=== PATIENT | male | born 1970 | race Caucasian/White ===

== ENCOUNTER 2022-08-26 19:04 | Inpatient (IN) ==
[2022-08-26] MEDS ORDERED: OPTIRAY 320 500ml IV ONE (19:13)
--- NOTE | 2022-08-26 19:18 | Emergency Department Note ---
Impression & Plan Left-sided weakness, Nausea ED Provider Note Provider: Juanjose Jameson MD DATE OF SERVICE: 08/26/2022 CHIEF COMPLAINT: Weakness, nausea HISTORY OF PRESENT ILLNESS: Patient is a 51-year-old gentleman presenting via ambulance today with a sudden onset around 430 today of some diffuse left-sided pain of his arm and leg. States he developed a headache and was dizzy and just generally does not feel well. No trauma reported. Denies any issues with his right arm and leg. No history of similar. Little bit of nausea reported. Denies any speech issues or trouble getting his words out. Again endorses some pain in his neck down to his left arm and leg. States the pain extends to his left chest wall and abdomen as well. States he is unable to move his left fingers or toes. States he has good movement of his right arm and leg. Denies any twisting or lifting action again or injury to his neck. Pain starts in his neck. Patient has vomited. PAST MEDICAL HISTORY: As noted above MEDICATIONS: None reported SOCIAL HISTORY: [employer]onite, non-smoker PHYSICAL EXAM: GENERAL: alert and oriented in no acute distress on stretcher Head: normocephalic and atraumatic EYES: No injection, discharge or icterus. NECK: Trachea midline. Supple no significant midline tenderness ENT: Mucous membranes pink and moist. Pharynx without erythema or exudate. LUNGS: Airway patent. No retractions. Breath sounds clear HEART: Regular rate and rhythm. Some slight left chest wall tenderness. ABDOMEN: Soft a with some slight left abdominal tenderness SKIN: Acyanotic, warm, dry, without rashes EXTREMITIES: No significant swelling or edema of the lower extremities. NEUROLOGICAL: Patient without significant slurred speech or aphasia. Minimal in the left facial droop. Diminished sensation left arm face and leg. Movement of flaccid left arm and leg. Intact strength and movement of the right arm and leg. Tongue midline. EK bpm normal sinus rhythm. No PVC or PAC. No acute ST segment elevation or depression with QTc of 414 CONTINUOUS CARDIAC MONITORING: was ordered and showed a heart rate of 50s-60s bpm in sinus bradycardia normal sinus rhythm Patient's laboratory studies and imaging reviewed. Differential includes Infection, dehydration, metabolic abnormality, hypo/hyperglycemia, electrolyte disturbance, anemia, hypoxia, cardiac sources, intracerebral event, toxicologic, neurologic, as well as other pathologies. IMPRESSION/MEDICAL DECISION MAKING: Patient made a stroke alert given the severity of symptoms with left-sided weakness and numbness. Onset of symptoms around 4:30 PM. No trauma reported. Reports pain which is atypical for CVA through most of his left arm, chest wall, abdomen, and leg. Has been nauseous. Denies acute visual change but states some dizziness. No significant right-sided deficits. Immediately to CT and then back to the room. Telestroke consult with [facility]. CT of the head without acute bleed. CTA of the neck without significant acute abnormality or dissection noted per radiology. CTA of the head without reported acute abnormality. Given the pain was a bit hesitant to immediately proceed with TNK and wished to discuss further with telestroke. Some delay in obtaining telestroke consultation due to transfer center called back issues. Eventual telestroke consultation. Discussed with patient and family at bedside risk and benefits. Given his significant hemiparesis within the 4 and half hour window, proceeded with TNK again after discussing risk and benefits with patient and family. Blood work here without other severe abnormalities. Again no central chest pain or abdominal pain and doubt this represents aortic dissection. Patient continues to complain of pain mainly in the left arm now improved in the left leg but some pain in his left great toe. Reports some nausea and received some Zofran for this. Given some IV fluid. After administration of thrombolytics will be monitored closely in the ICU and hospitalist was consulted. Discussed the case with Dr. Alves. DIAGNOSIS: Left-sided weakness and numbness, nausea, left facial numbness DISPOSITION: Hospitalist will evaluate Patient was agreeable with this plan. Critical Care I have personally spent 55 minutes of critical care time in the direct management of this patient. This includes bedside care, interpretation of diagnostic studies, and testing, discussion with consultants, patient, and [facility] members, and other required patient management activities. These 55 minutes is in excess of all separately billable procedures. Past Med/Surg History Social History Smoking Status: Current every day smoker Tobacco Type: Cigarettes and Cigars Cigarettes Per Day: 1 cigar per day; Hx Alcohol Use: No Hx Substance Use: No Preferred Language: Greenlandic Communication Ability: Effective Retail Coordinator Required: No Beliefs That Will Affect Care: None Current Living Situation: Spouse and Family Current Living Situation Comment: Patient lives with spouse and children Other Information That Helps Us Care for You: No Feels Safe at Home: Yes Safety Concerns: Feels Safe At This Time Assistive Devices: Glasses Assistive Devices Comment: reading glasses Allergies Allergies Allergy/AdvReac Type Severity Reaction Status Date / Time morphine Allergy Mild Hives Verified 08/26/22 20:40 Home Meds Home Medications Medication Instructions Recorded Confirmed acetaminophen 650 mg 650 mg PO Q8H PRN Pain 08/26/22 08/26/22 tablet,extended release cyclobenzaprine 10 mg tablet 10 mg PO BID PRN muscle spasms 08/26/22 08/26/22 Results & Data (ED) Vital Signs Vital Signs - 24 hr 08/26/22 19:21 08/26/22 19:30 08/26/22 19:35 Temperature 36.7 C Temperature Source Oral Pulse Rate 66 62 62 Pulse Rate [Apical] Pulse Rhythm [Apical] Pulse Strength [Apical] Respiratory Rate 16 16 Respiratory Effort / Characteristics Non-Labored Spontaneous Respiratory Depth Normal Respiratory Pattern Regular Blood Pressure 134/76 122/69 Blood Pressure [Right Arm] Blood Pressure Mean 95 86 Blood Pressure Mean [Right Arm] Blood Pressure Position Semi-fowlers Blood Pressure Position [Right Arm] Pulse Oximetry 96 98 Oxygen Delivery Method Room Air Room Air Sepsis Recent Fever Within 48 Hours No Sepsis New/Unexplained Change in Mental Status N/A Sepsis Action Taken by Nursing No Action Required 08/26/22 19:45 08/26/22 20:25 08/26/22 20:40 Temperature 36.7 C 36.6 C Temperature Source Oral Oral Pulse Rate 65 Pulse Rate [Apical] 55 L 58 L Pulse Rhythm [Apical] Regular Regular Pulse Strength [Apical] Normal Normal Respiratory Rate 18 16 20 Respiratory Effort / Characteristics Non-Labored Spontaneous Non-Labored Spontaneous Respiratory Depth Normal Normal Respiratory Pattern Regular Regular Blood Pressure 125/70 Blood Pressure [Right Arm] 113/69 111/71 Blood Pressure Mean 88 Blood Pressure Mean [Right Arm] 83 84 Blood Pressure Position Blood Pressure Position [Right Arm] Semi-fowlers Semi-fowlers Pulse Oximetry 94 97 97 Oxygen Delivery Method Room Air Room Air Room Air Sepsis Recent Fever Within 48 Hours Sepsis New/Unexplained Change in Mental Status Sepsis Action Taken by Nursing 08/26/22 20:55 Temperature 36.6 C Temperature Source Oral Pulse Rate Pulse Rate [Apical] 60 Pulse Rhythm [Apical] Regular Pulse Strength [Apical] Normal Respiratory Rate 18 Respiratory Effort / Characteristics Non-Labored Spontaneous Respiratory Depth Normal Respiratory Pattern Regular Blood Pressure Blood Pressure [Right Arm] 114/68 Blood Pressure Mean Blood Pressure Mean [Right Arm] 83 Blood Pressure Position Blood Pressure Position [Right Arm] Semi-fowlers Pulse Oximetry 97 Oxygen Delivery Method Room Air Sepsis Recent Fever Within 48 Hours Sepsis New/Unexplained Change in Mental Status Sepsis Action Taken by Nursing Laboratory Data 08/26/22 19:22 08/26/22 19:22 Lab Results 08/26/22 08/26/22 08/26/22 Range/Units 19:20 19:22 19:22 WBC 5.35 (4.8-10.8) K/ul RBC 4.53 L (4.70-6.10) M/uL Hgb 14.1 (14.0-18.0) g/dl Hct 39.7 L (42.0-52.0) % MCV 87.6 (80.0-100.0) fL MCH 31.1 (25.0-34.0) pg MCHC 35.5 (32.0-36.0) g/dL RDW Std Deviation 41.8 (36.4-46.3) fL RDW Coeff of Clement[place] 13.0 (11.5-14.5) % Plt Count 285 (130-400) K/uL MPV 9.9 (9.4-12.4) fL Immature Gran % (Auto) 0.2 % Neut % (Auto) 43.5 % Lymph % (Auto) 40.2 % Simpson % (Auto) 10.3 % Eos % (Auto) 3.6 % Baso % (Auto) 2.2 % Neut # (Auto) 2.33 (1.40-6.50) K/uL Lymph # (Auto) 2.15 (1.2-3.4) K/uL Simpson # (Auto) 0.55 (0.11-0.59) K/uL Eos # (Auto) 0.19 (0-0.50) K/uL Baso # (Auto) 0.12 (0-0.2) K/uL Immature Gran # (Auto) 0.01 (0.01-0.20) K/uL PT (9.0-12.0) Seconds INR (0.9-1.1) APTT (21.0-31.0) Seconds PTT Ratio Sodium (136-145) mmol/L Potassium (3.5-5.1) mmol/L Chloride (98-107) mmol/L Carbon Dioxide (21-32) mmol/L Anion Gap (3-11) BUN (6-23) mg/dl Creatinine (0.6-1.4) mg/dl Est Cr Clr Drug Dosing ml/min Est GFR ( Amer) ml/min Est GFR (Non-Af Amer) ml/min BUN/Creatinine Ratio (10-20) Glucose (70-99(Fasting)) mg/dl POC Glucose 87 (70-99) mg/dl Calcium (8.5-10.1) mg/dl Magnesium (1.7-2.4) mg/dl Total Bilirubin (0.2-1.0) mg/dl AST (13-39) U/L ALT (7-52) U/L Alkaline Phosphatase (34-104) U/L Total Creatine Kinase (30-223) U/L Troponin I High Sens (0-20) pg/ml Total Protein (6.0-8.3) gm/dl Albumin (3.4-5.0) gm/dl Globulin (2.5-4.0) gm/dl Albumin/Globulin Ratio (0.9-2) Urine Color Urine Appearance (Clear) Urine pH (4.5-7.5) Ur Specific [place] (1.000-1.030) Urine Protein (Negative) Urine Glucose (UA) (Negative) Urine Ketones (Negative) Urine Blood (Negative) Urine Nitrite (Negative) Urine Bilirubin (Negative) Urine Urobilinogen (Negative) Ur Leukocyte Esterase (Negative) Lyme Disease IgG Ab (Negative) Lyme Disease IgM Ab (Negative) SARS-CoV-2, RNA, NAAT (NEGATIVE) Blood Type A Positive Antibody Screen NEGATIVE 08/26/22 08/26/22 08/26/22 Range/Units 19:22 19:22 19:23 WBC (4.8-10.8) K/ul RBC (4.70-6.10) M/uL Hgb (14.0-18.0) g/dl Hct (42.0-52.0) % MCV (80.0-100.0) fL MCH (25.0-34.0) pg MCHC (32.0-36.0) g/dL RDW Std Deviation (36.4-46.3) fL RDW Coeff of Clemente (11.5-14.5) % Plt Count (130-400) K/uL MPV (9.4-12.4) fL Immature Gran % (Auto) % Neut % (Auto) % Lymph % (Auto) % Simpson % (Auto) % Eos % (Auto) % Baso % (Auto) % Neut # (Auto) (1.40-6.50) K/uL Lymph # (Auto) (1.2-3.4) K/uL Simpson # (Auto) (0.11-0.59) K/uL Eos # (Auto) (0-0.50) K/uL Baso # (Auto) (0-0.2) K/uL Immature Gran # (Auto) (0.01-0.20) K/uL PT 12.2 H (9.0-12.0) Seconds INR 1.2 H (0.9-1.1) APTT 27.0 (21.0-31.0) Seconds PTT Ratio 1.0 Sodium 135 L (136-145) mmol/L Potassium 3.8 (3.5-5.1) mmol/L Chloride 102 (98-107) mmol/L Carbon Dioxide 28 (21-32) mmol/L Anion Gap 5 (3-11) BUN 9 (6-23) mg/dl Creatinine 0.95 (0.6-1.4) mg/dl Est Cr Clr Drug Dosing 103.2 ml/min Est GFR ( Amer) 108.5 ml/min Est GFR (Non-Af Amer) 93.6 ml/min BUN/Creatinine Ratio 9.5 L (10-20) Glucose 79 (70-99(Fasting)) mg/dl POC Glucose (70-99) mg/dl Calcium 9.0 (8.5-10.1) mg/dl Magnesium 1.9 (1.7-2.4) mg/dl Total Bilirubin 0.6 (0.2-1.0) mg/dl AST 16 (13-39) U/L ALT 19 (7-52) U/L Alkaline Phosphatase 64 (34-104) U/L Total Creatine Kinase 96 (30-223) U/L Troponin I High Sens 3.0 (0-20) pg/ml Total Protein 6.4 (6.0-8.3) gm/dl Albumin 4.2 (3.4-5.0) gm/dl Globulin 2.2 L (2.5-4.0) gm/dl Albumin/Globulin Ratio 1.9 (0.9-2) Urine Color Urine Appearance (Clear) Urine pH (4.5-7.5) Ur Specific [place] (1.000-1.030) Urine Protein (Negative) Urine Glucose (UA) (Negative) Urine Ketones (Negative) Urine Blood (Negative) Urine Nitrite (Negative) Urine Bilirubin (Negative) Urine Urobilinogen (Negative) Ur Leukocyte Esterase (Negative) Lyme Disease IgG Ab Negative (Negative) Lyme Disease IgM Ab Negative (Negative) SARS-CoV-2, RNA, NAAT (NEGATIVE) Blood Type Antibody Screen 08/26/22 08/26/22 Range/Units 19:28 19:35 WBC (4.8-10.8) K/ul RBC (4.70-6.10) M/uL Hgb (14.0-18.0) g/dl Hct (42.0-52.0) % MCV (80.0-100.0) fL MCH (25.0-34.0) pg MCHC (32.0-36.0) g/dL RDW Std Deviation (36.4-46.3) fL RDW Coeff of Clement[place] (11.5-14.5) % Plt Count (130-400) K/uL MPV (9.4-12.4) fL Immature Gran % (Auto) % Neut % (Auto) % Lymph % (Auto) % Simpson % (Auto) % Eos % (Auto) % Baso % (Auto) % Neut # (Auto) (1.40-6.50) K/uL Lymph # (Auto) (1.2-3.4) K/uL Simpson # (Auto) (0.11-0.59) K/uL Eos # (Auto) (0-0.50) K/uL Baso # (Auto) (0-0.2) K/uL Immature Gran # (Auto) (0.01-0.20) K/uL PT (9.0-12.0) Seconds INR (0.9-1.1) APTT (21.0-31.0) Seconds PTT Ratio Sodium (136-145) mmol/L Potassium (3.5-5.1) mmol/L Chloride (98-107) mmol/L Carbon Dioxide (21-32) mmol/L Anion Gap (3-11) BUN (6-23) mg/dl Creatinine (0.6-1.4) mg/dl Est Cr Clr Drug Dosing ml/min Est GFR ( Amer) ml/min Est GFR (Non-Af Amer) ml/min BUN/Creatinine Ratio (10-20) Glucose (70-99(Fasting)) mg/dl POC Glucose (70-99) mg/dl Calcium (8.5-10.1) mg/dl Magnesium (1.7-2.4) mg/dl Total Bilirubin (0.2-1.0) mg/dl AST (13-39) U/L ALT (7-52) U/L Alkaline Phosphatase (34-104) U/L Total Creatine Kinase (30-223) U/L Troponin I High Sens (0-20) pg/ml Total Protein (6.0-8.3) gm/dl Albumin (3.4-5.0) gm/dl Globulin (2.5-4.0) gm/dl Albumin/Globulin Ratio (0.9-2) Urine Color Yellow Urine Appearance Clear (Clear) Urine pH 7.5 (4.5-7.5) Ur Specific [place] 1.008 (1.000-1.030) Urine Protein Negative (Negative) Urine Glucose (UA) Negative (Negative) Urine Ketones Negative (Negative) Urine Blood Negative (Negative) Urine Nitrite Negative (Negative) Urine Bilirubin Negative (Negative) Urine Urobilinogen Negative (Negative) Ur Leukocyte Esterase Negative (Negative) Lyme Disease IgG Ab (Negative) Lyme Disease IgM Ab (Negative) SARS-CoV-2, RNA, NAAT NEGATIVE (NEGATIVE) Blood Type Antibody Screen Administered Medications Dextrose/Lactated Ringer's (D5w And Lactated Ringers) 1,000 mls @ 100 mls/hr IV .Q10H ONE Stop: 08/27/22 07:00 Last Admin: 08/26/22 22:03 Dose: 100 mls/hr Documented By: BPY Discontinued Medications Tenecteplase 22 mg/ Syringe 4.4 mls @ 52.8 mls/min IV NOW ONE; Protocol Stop: 08/26/22 20:15 Last Admin: 08/26/22 20:10 Dose: 52.8 mls/min Documented By: TIMOTHY Co-signed By: CRISTY Sodium Chloride (Nss 1000ml) 1,000 mls @ 999 mls/hr IV .Q1H1M ONE Stop: 08/26/22 21:08 Last Infusion: 08/26/22 21:13 Dose: 0 mls/hr Documented By: Admin: 08/26/22 20:12 Dose: 999 mls/hr Documented By: TIMOTHY Magnesium Sulfate/Dextrose (Magnesium Sulfate / D5w) 1 gm in 100 mls @ 50 mls/hr IV ONE ONE Stop: 08/26/22 22:20 Last Infusion: 08/26/22 22:50 Dose: 0 mls/hr Documented By: Admin: 08/26/22 20:37 Dose: 50 mls/hr Documented By: TIMOTHY Acetaminophen (Ofirmev) 1,000 mg in 100 mls @ 400 mls/hr IV NOW STA Stop: 08/26/22 21:14 Last Infusion: 08/26/22 21:24 Dose: 0 mls/hr Documented By: Admin: 08/26/22 21:09 Dose: 400 mls/hr Documented By: TIMOTHY Ioversol (Optiray 320 500ml) 118 ml IV ONCE ONE Stop: 08/26/22 19:14 Last Admin: 08/26/22 19:13 Dose: 118 ml Documented By: NKECHI Miscellaneous (Stat Iv) 1 each N/A NOW STA Stop: 08/26/22 20:05 Last Admin: 08/26/22 20:11 Dose: 1 each Documented By: TIMOTHY Ondansetron HCl (Ondansetron Inj 2 Mg/Ml 2 Ml Vial) 4 mg IV NOW STA Stop: 08/26/22 19:28 Last Admin: 08/26/22 19:31 Dose: 4 mg Documented By: TIMOTHY Ondansetron HCl (Ondansetron Inj 2 Mg/Ml 2 Ml Vial) 4 mg IV NOW STA Stop: 08/26/22 20:09 Last Admin: 08/26/22 20:13 Dose: 4 mg Documented By: TIMOTHY Sodium Chloride (Sodium Chloride 0.9% 10ml Flush) 20 ml IV NOW STA Stop: 08/26/22 20:05 Last Admin: 08/26/22 20:11 Dose: 20 ml Documented By: JT Imaging Data Radiologist's Impression: Head CT 08/26/22 19:03 CT OF THE HEAD WITHOUT CONTRAST CLINICAL HISTORY: neuro deficit, acute stroke suspected, left weak/numb COMPARISON STUDY: Head CT January 22, 2007. TECHNIQUE: Helical axial images of the head were obtained without IV contrast. Automated exposure control was utilized for the study. A dose lowering technique was utilized adhering to the principles of ALARA. FINDINGS: This study is mildly compromised by motion artifact. No acute intracranial hemorrhage, midline shift or mass effect is present. The ventricular system is unremarkable. The basal cisterns are patent. No extra- axial collections are present. There are no findings to suggest acute dural sinus thrombosis or acute territorial infarct. No significant calvarial abnormalities are present. IMPRESSION: No acute intracranial findings. ACT 112: Negative or not required by law. Electronically signed by: Juan Joseph M.D. 08/26/2022 7:29 PM Head CTA 08/26/22 19:03 CTA ANGIOGRAPHY OF THE HEAD CLINICAL HISTORY: neuro deficit, acute stroke suspected COMPARISON STUDY: Head CT January 22, 2007. TECHNIQUE: Helical axial images of the head were obtained following uneventful intravenous administration of 118 cc of Optiray. Sagittal and coronal reconstructions were viewed as well as maximal intensity projections on an independent 3-D workstation. Automated exposure control was utilized for the study. A dose lowering technique was utilized adhering to the principles of ALARA. FINDINGS: Brain volume is normal. Ventricular system is normal. Basal cisterns are patent. There are no extra-axial collections. No intracranial hemorrhage was identified on the head CT which will be reported separately. The bilateral M1, M2, A1 and A2 segments are patent. There is no central vessel occlusion. There is no intracranial aneurysm. The posterior circulation is also intact. Major dural sinuses are patent. IMPRESSION: No central vessel occlusion. No intracranial aneurysm. ACT 112: Negative or not required by law. Electronically signed by: Juan Joseph M.D. 08/26/2022 7:37 PM Neck CTA 08/26/22 19:03 CT ANGIOGRAPHY OF THE NECK WITH CONTRAST CLINICAL HISTORY: neuro deficit, acute stroke suspected COMPARISON STUDY: No previous studies for comparison. Technique: CT angiography of the carotid and vertebral arteries was obtained using Optiray and 3D reconstruction on an independent workstation. NASCET cri teria was utilized. Automated exposure control was utilized for the study. A dose lowering technique was utilized adhering to the principles of ALARA. CT DOSE: 1711.57 mGy.cm Findings: Visualized portions of the lung apices are unremarkable. There is no cervical lymphadenopathy. There is no acute cervical spine fracture. The bilat eral common carotid, cervical internal carotid and vertebral arteries are patent. There is no dissection, stenosis or aneurysm within the major vasculature of the neck. CTA of the head will be reported separately. IMPRESSION: Unremarkable CTA of the neck. ACT 112: Negative or not required by law. Electronically signed by: Juan Joseph M.D. 08/26/2022 7:33 PM Discharge Plan Visit Data Chief Complaint: Stroke Alert Stated Complaint: STROKE SX ED Provider: Juanjose Jameson Discharge Problem: Left-sided weakness, Nausea Patient Disposition: Admitted As Inpatient Discharge Instructions Interventions: ED Discharge Assessment Last Done: 08/26/22 21:22
[2022-08-26] MEDS ORDERED: ONDANSETRON INJ 2 MG/ML 2 ML VIAL IV STA ×2 (19:27→20:08)
--- NOTE | 2022-08-26 19:31 | CT Scan Report ---
CT OF THE HEAD WITHOUT CONTRAST CLINICAL HISTORY: neuro deficit, acute stroke suspected, left weak/numb COMPARISON STUDY: Head CT January 22, 2007. TECHNIQUE: Helical axial images of the head were obtained without IV contrast. Automated exposure con trol was utilized for the study. A dose lowering technique was utilized adhering to the principles o f ALARA. FINDINGS: This study is mildly compromised by motion artifact. No acute intracranial hemorrhage, midl ine shift or mass effect is present. The ventricular system is unremarkable. The basal cisterns are p atent. No extra-axial collections are present. There are no findings to suggest acute dural sinus thr ombosis or acute territorial infarct. No significant calvarial abnormalities are present. IMPRESSION: No acute intracranial findings. ACT 112: Negative or not required by law. Electronically signed by: Juan Joseph M.D. 08/26/2022 7:29 PM
--- NOTE | 2022-08-26 19:37 | CT Scan Report ---
CT ANGIOGRAPHY OF THE NECK WITH CONTRAST CLINICAL HISTORY: neuro deficit, acute stroke suspected COMPARISON STUDY: No previous studies for comparison. Technique: CT angiography of the carotid and vertebral arteries was obtained using Optiray and 3D rec onstruction on an independent workstation. NASCET criteria was utilized. Automated exposure control was utilized for the study. A dose lowering technique was utilized adhering to the principles of ALA RA. CT DOSE: 1711.57 mGy.cm Findings: Visualized portions of the lung apices are unremarkable. There is no cervical lymphadenopat hy. There is no acute cervical spine fracture. The bilateral common carotid, cervical internal caroti d and vertebral arteries are patent. There is no dissection, stenosis or aneurysm within the major va sculature of the neck. CTA of the head will be reported separately. IMPRESSION: Unremarkable CTA of the neck. ACT 112: Negative or not required by law. Electronically signed by: Juan Joseph M.D. 08/26/2022 7:33 PM
--- NOTE | 2022-08-26 19:38 | CT Scan Report ---
CTA ANGIOGRAPHY OF THE HEAD CLINICAL HISTORY: neuro deficit, acute stroke suspected COMPARISON STUDY: Head CT January 22, 2007. TECHNIQUE: Helical axial images of the head were obtained following uneventful intravenous administr ation of 118 cc of Optiray. Sagittal and coronal reconstructions were viewed as well as maximal inten sity projections on an independent 3-D workstation. Automated exposure control was utilized for the study. A dose lowering technique was utilized adhering to the principles of ALARA. FINDINGS: Brain volume is normal. Ventricular system is normal. Basal cisterns are patent. There are no extra-axial collections. No intracranial hemorrhage was identified on the head CT which will be re ported separately. The bilateral M1, M2, A1 and A2 segments are patent. There is no central vessel oc clusion. There is no intracranial aneurysm. The posterior circulation is also intact. Major dural sin uses are patent. IMPRESSION: No central vessel occlusion. No intracranial aneurysm. ACT 112: Negative or not required by law. Electronically signed by: Juan Joseph M.D. 08/26/2022 7:37 PM
[2022-08-26 19:45] LABS: Basophils # (auto) 0.12 K/uL (0-0.2); Basophils % (auto) 2.2 %; Eosinophils # (auto) 0.19 K/uL (0-0.50); Eosinophils % (auto) 3.6 %; Hematocrit (blood only) 39.7 % (42.0-52.0); Hemoglobin 14.1 g/dl (14.0-18.0); Immature Granulocytes # (auto) 0.01 K/uL (0.01-0.20); Immature Granulocytes % (auto) 0.2 %; Lymphocytes # (auto) 2.15 K/uL (1.2-3.4); Lymphocytes % (auto) 40.2 %; Mean Corpuscular Hemoglobin 31.1 pg (25.0-34.0); Mean Corpuscular Hgb Conc 35.5 g/dL (32.0-36.0); Mean Corpuscular Volume 87.6 fL (80.0-100.0); Mean Platelet Volume 9.9 fL (9.4-12.4); Monocytes # (auto) 0.55 K/uL (0.11-0.59); Monocytes % (auto) 10.3 %; Neutrophils # (auto) 2.33 K/uL (1.40-6.50); Neutrophils % (auto) 43.5 %; Platelet Count 285 K/uL (130-400); RDW Standard Deviation 41.8 fL (36.4-46.3); Red Blood Count 4.53 M/uL (4.70-6.10); White Blood Count 5.35 K/ul (4.8-10.8)
[2022-08-26 19:49] LABS: Appearance Urine Clear (Clear); Bilirubin Urine Negative (Negative); Blood Urine Negative (Negative); Color Urine Yellow; Glucose Urine UA Negative (Negative); Ketones Urine Negative (Negative); Leukocyte Esterase Urine Negative (Negative); Nitrite Urine Negative (Negative); Protein Urine Negative (Negative); Specific Gravity Urine 1.008 (1.000-1.030); Urobilinogen Urine Negative (Negative); pH Urine 7.5 (4.5-7.5)
[2022-08-26 20:02] LABS: Albumin Globulin Ratio 1.9 (0.9-2); Albumin Level 4.2 gm/dl (3.4-5.0); BUN Creatinine Ratio 9.5 (10-20); Bilirubin,Total 0.6 mg/dl (0.2-1.0); Creatinine Clr Calc Pharmacy 103.2 ml/min; Est GFR (African American) 108.5 ml/min; Est GFR (Non-African American) 93.6 ml/min; Globulin 2.2 gm/dl (2.5-4.0); Magnesium 1.9 mg/dl (1.7-2.4); Potassium 3.8 mmol/L (3.5-5.1); Total Protein 6.4 gm/dl (6.0-8.3)
[2022-08-26] MEDS ORDERED: STAT IV STA (20:04)
[2022-08-26] MEDS ORDERED: SODIUM CHLORIDE 0.9% 10ML FLUSH IV STA (20:04)
[2022-08-26] MEDS ORDERED: SODIUM CHLORIDE 0.9% 1000ML 1,000 ML IV ONE (20:08)
[2022-08-26 20:14] LABS: INR 1.2 (0.9-1.1); Prothrombin Time 12.2 Seconds (9.0-12.0)
[2022-08-26] MEDS ORDERED: TENECTEPLASE 22 MG in SYRINGE 0 ML IV ONE (20:14)
[2022-08-26] MEDS ORDERED: No Aspirin within 24hrs of THROMBOLYTIC-Stroke PO SCH (20:15)
[2022-08-26] MEDS ORDERED: MAGNESIUM SULFATE / D5W 1 GM/100 ML BAG IV ONE (20:21)
[2022-08-26] MEDS ORDERED: ACETAMINOPHEN 1,000 MG/100 ML VIAL IV STA (21:00)
--- NOTE | 2022-08-26 21:00 | History & Physical Report ---
Date of Service August 26, 2022 Assessment & Plan (1) Left-sided weakness: Plan: Acute ischemic stroke (right MCA distribution) in a young patient Somewhat atypical given pain complaints. Weakness unchanged post tenecteplase administration at the ER Past tobacco abuse ICU monitoring post thrombolytic administration Neurochecks MRI brain Re: Left-sided weakness MRI cervical spine as per additional [facility] [place] Hypercoag work-up Neurology consult Re: Left-sided weakness DVT prophylaxis. Lovenox subcu 24 hours post tPA if no bleed Full code Patient requesting updates from providers. Mr. Lizzie Anand, contact #[phone]. Text document was generated using [employer]uz[employer] voice recognition software. It may contain grammatical or spelling errors. Kindly contact undersigned for clarification of any documentation item in question. History of Present Illness Chief Complaint: Left-sided weakness/pain Primary Care Provider: Dr. Garcia History obtained from patient, family, and records. Medical history significant for past tobacco abuse. Around 4:30 PM today, patient noted achy left upper arm and left leg pain with left-sided headache and dizziness symptoms. No neck pain, no chest pain, no SOB. No prior episodes. Minutes later, patient noted weakness and numbness of the left arm and left leg. No slurred speech noted by . Stroke alert called upon arrival at the ER. IV tenecteplase administered as per [facility] neurolog[place] recommendation. Left-sided pain somewhat better but weakness the same as per patient. Patient currently complaining of left-sided rib pain without shortness of breath. No recent trauma. Medical History as above Surgical History : None Family History : Prostate cancer Personal/Social history : Past tobacco abuse, no EtOH intake, [employer] company Allergies Allergy/AdvReac Type Severity Reaction Status Date / Time morphine Allergy Mild Hives Verified 08/26/22 20:40 Home Medications Medication Instructions Recorded Confirmed Type acetaminophen 650 mg 650 mg PO Q8H PRN Pain 08/26/22 08/26/22 History tablet,extended release cyclobenzaprine 10 mg tablet 10 mg PO BID PRN muscle spasms 08/26/22 08/26/22 History Past Med/Surg History Social History Smoking Status: Current every day smoker Tobacco Type: Cigarettes and Cigars Cigarettes Per Day: 1 cigar per day; Hx Alcohol Use: No Hx Substance Use: No Preferred Language: Divehi Communication Ability: Effective [place] Required: No Beliefs That Will Affect Care: None Current Living Situation: Spouse and Family Current Living Situation Comment: Patient lives with spouse and children Other Information That Helps Us Care for You: No Feels Safe at Home: Yes Safety Concerns: Feels Safe At This Time Assistive Devices: Glasses Assistive Devices Comment: reading glasses Review of Systems Review of Systems: As per HPI, all other systems reviewed and negative Physical Exam Physical Exam: GENERAL: Comfortable, slightly anxious, looks older than stated age, no respiratory distress SKIN: Normal color, warm HEENT: [place] palpebral conjunctivae, no ptosis, left nasolabial fold flattening, dry buccal mucosa NECK : Supple, no tenderness CHEST : CTA, minimal chest wall tenderness HEART : Bradycardic, no obvious murmurs ABDOMEN: Some distention, nontender EXTREMITIES : No LE swelling/tenderness, no other conspicuous deformities noted NEUROLOGIC : Coherent, left nasolabial fold flattening, MMTs RUE/RLE 5/5, LUE/LLE 0/5 Results & Data Results & Data ([facility]) Vital Signs (Past 12 Hours) Vital Signs Temp Pulse Pulse Resp BP BP Pulse Ox 08/26/22 20:40 36.6 C 58 L 20 111/71 97 08/26/22 20:25 36.7 C 55 L 16 113/69 97 08/26/22 19:45 65 18 125/70 94 08/26/22 19:35 62 08/26/22 19:30 62 16 122/69 98 08/26/22 19:21 36.7 C 66 16 134/76 96 O2 Del Method 08/26/22 20:40 Room Air 08/26/22 20:25 Room Air 08/26/22 19:45 Room Air 08/26/22 19:35 08/26/22 19:30 Room Air 08/26/22 19:21 Room Air Laboratory Results Laboratory Results WBC 5.35 K/ul (4.8-10.8) 08/26/22 19:22 RBC 4.53 M/uL (4.70-6.10) L 08/26/22 19:22 Hgb 14.1 g/dl (14.0-18.0) 08/26/22 19:22 Hct 39.7 % (42.0-52.0) L 08/26/22 19:22 MCV 87.6 fL (80.0-100.0) 08/26/22 19: MCH 31.1 pg (25.0-34.0) 08/26/22: MCHC 35.5 g/dL (32.0-36.0) 08/26/22: RDW Std Deviation 41.8 fL (36.4-46.3) 08/26/22: RDW Coeff of [place] 13.0 % (11.5-14.5) 08/26/22: Plt Count 285 K/uL (130-400) 08/26/22: MPV 9.9 fL (9.4-12.4) 08/26/22: Immature Gran % (Auto) 0.2 % 08/26/22: Neut % (Auto) 43.5 % 08/26/22: Lymph % (Auto) 40.2 % 08/26/22: [place] % (Auto) 10.3 % 08/26/22: Eos % (Auto) 3.6 % 08/26/22: Baso % (Auto) 2.2 % 08/26/22: Neut # (Auto) 2.33 K/uL (1.40-6.50) 08/26/22: Lymph # (Auto) 2.15 K/uL (1.2-3.4) 08/26/22: [place] # (Auto) 0.55 K/uL (0.11-0.59) 08/26/22: Eos # (Auto) 0.19 K/uL (0-0.50) 08/26/22: Baso # (Auto) 0.12 K/uL (0-0.2) 08/26/22: Immature Gran # (Auto) 0.01 K/uL (0.01-0.20) 08/26/22: PT 12.2 Seconds (9.0-12.0) H 08/26/22: INR 1.2 (0.9-1.1) H 08/26/22: APTT 27.0 Seconds (21.0-31.0) 08/26/22 19:22 PTT Ratio 1.0 08/26/22 19:22 Sodium 135 mmol/L (136-145) L 08/26/22 19:22 Potassium 3.8 mmol/L (3.5-5.1) 08/26/22 19:22 Chloride 102 mmol/L (98-107) 08/26/22 19:22 Carbon Dioxide 28 mmol/L (21-32) 08/26/22 19:22 Anion Gap 5 (3-11) 08/26/22 19:22 BUN 9 mg/dl (6-23) 08/26/22 19:22 Creatinine 0.95 mg/dl (0.6-1.4) 08/26/22 19:22 Est Cr Clr Drug Dosing 103.2 ml/min 08/26/22 19:22 Est GFR ( Amer) 108.5 ml/min 08/26/22 19:22 Est GFR (Non-Af Amer) 93.6 ml/min 08/26/22 19:22 BUN/Creatinine Ratio 9.5 (10-20) L 08/26/22 19:22 Glucose 79 mg/dl (70-99(Fasting)) 08/26/22 19:22 POC Glucose 87 mg/dl (70-99) 08/26/22 19:20 Calcium 9.0 mg/dl (8.5-10.1) 08/26/22 19: Magnesium 1.9 mg/dl (1.7-2.4) 08/26/22 19:22 Total Bilirubin 0.6 mg/dl (0.2-1.0) 08/26/22 19:22 AST 16 U/L (13-39) 08/26/22 19:22 ALT 19 U/L (7-52) 08/26/22 19:22 Alkaline Phosphatase 64 U/L (34-104) 08/26/22 19:22 Total Creatine Kinase 96 U/L (30-223) 08/26/22 19:22 Troponin I High Sens 3.0 pg/ml (0-20) 08/26/22 19:22 Total Protein 6.4 gm/dl (6.0-8.3) 08/26/22 19:22 Albumin 4.2 gm/dl (3.4-5.0) 08/26/22 19:22 Globulin 2.2 gm/dl (2.5-4.0) L 08/26/22 19:22 Albumin/Globulin Ratio 1.9 (0.9-2) 08/26/22 19:22 Urine Color Yellow 08/26/22 19:35 Urine Appearance Clear (Clear) 08/26/22 19:35 Urine pH 7.5 (4.5-7.5) 08/26/22 19:35 Ur Specific [place] 1.008 (1.000-1.030) 08/26/22 19:35 Urine Protein Negative (Negative) 08/26/22 19:35 Urine Glucose (UA) Negative (Negative) 08/26/22 19:35 Urine Ketones Negative (Negative) 08/26/22 19:35 Urine Blood Negative (Negative) 08/26/22 19:35 Urine Nitrite Negative (Negative) 08/26/22 19:35 Urine Bilirubin Negative (Negative) 08/26/22 19:35 Urine Urobilinogen Negative (Negative) 08/26/22 19:35 Ur Leukocyte Esterase Negative (Negative) 08/26/22 19:35 SARS-CoV-2, RNA, NAAT NEGATIVE (NEGATIVE) 08/26/22 19:28 Blood Type A Positive 08/26/22 19: Antibody Screen NEGATIVE 08/26/22 19:[address] 08/26/22 19:03 CT OF THE HEAD WITHOUT CONTRAST CLINICAL HISTORY: neuro deficit, acute stroke suspected, left weak/numb COMPARISON STUDY: Head CT January 22, 2007. TECHNIQUE: Helical axial images of the head were obtained without IV contrast. Automated exposure control was utilized for the study. A dose lowering te chnique was utilized adhering to the principles of ALARA. FINDINGS: This study is mildly compromised by motion artifact. No acute intracranial hemorrhage, midline shift or mass effect is present. The ventricular system is unremarkable. The basal cisterns are patent. No extra- axial collections are present. There are no findings to suggest acute dural sinus thrombosis or acute territorial infarct. No significant calvarial abnormalities are present. IMPRESSION: No acute intracranial findings. ACT 112: Negative or not required by law. Electronically signed by: Juan Joseph M.D. 08/26/2022 7:29 PM Head CTA 08/26/22 19:03 CTA ANGIOGRAPHY OF THE HEAD CLINICAL HISTORY: neuro deficit, acute stroke suspected COMPARISON STUDY: Head CT January 22, 2007. TECHNIQUE: Helical axial images of the head were obtained following uneventful intravenous administration of 118 cc of Optiray. Sagittal and coronal reconstructions were viewed as well as maximal intensity projections on an independent 3-D workstation. Automated exposure control was utilized for the study. A dose lowering technique was utilized adhering to the principles of ALARA. FINDINGS: Brain volume is normal. Ventricular system is normal. Basal cisterns are patent. There are no extra-axial collections. No intracranial hemorrhage was identified on the head CT which will be reported separately. The bilateral M1, M2, A1 and A2 segments are patent. There is no central vessel occlusion. There is no intracranial aneurysm. The posterior circulation is also intact. Major dural sinuses are patent. IMPRESSION: No central vessel occlusion. No intracranial aneurysm. ACT 112: Negative or not required by law. Electronically signed by: Juan Joseph M.D. 08/26/2022 7:37 PM Neck CTA 08/26/22 19:03 CT ANGIOGRAPHY OF THE NECK WITH CONTRAST CLINICAL HISTORY: neuro deficit, acute stroke suspected COMPARISON STUDY: No previous studies for comparison. Technique: CT angiography of the carotid and vertebral arteries was obtained using Optiray and 3D reconstruction on an independent workstation. NASCET criteria was utilized. Automated exposure control was utilized for the study. A dose lowering technique was utilized adhering to the principles of ALARA. CT DOSE: 1711.57 mGy.cm Findings: Visualized portions of the lung apices are unremarkable. There is no cervical lymphadenopathy. There is no acute cervical spine fracture. The bilateral common carotid, cervical internal carotid and vertebral arteries are patent. There is no dissection, stenosis or aneurysm within the major vasculature of the neck. CTA of the head will be reported separately. IMPRESSION: Unremarkable CTA of the neck. ACT 112: Negative or not required by law. Electronically signed by: Juan Joseph M.D. 08/26/2022 7:33 PM Diagnostic Findings Chest x-ray as per my interpretation: Atelectasis EKG as per my interpretation : Rate 60, NSR, normal axis, LVH, no ischemia
[2022-08-26] MEDS ORDERED: D5W AND LACTATED RINGERS 1,000 ML IV ONE (21:01)
[2022-08-26 21:05] LABS: Lyme Ab IgG w/WB Rflx Negative (Negative); Lyme Ab IgM w/WB Rflx Negative (Negative)
[2022-08-26] MEDS ORDERED: ACETAMINOPHEN 1,000 MG/100 ML VIAL IV PRN (21:58)
[2022-08-26] MEDS ORDERED: LORazepam 2 MG/1 ML VIAL IV PRN (21:58)
[2022-08-26] MEDS ORDERED: PROMETHAZINE HCL 12.5 MG in SODIUM CHLORIDE 0.9% 50 ML IV PRN (21:58)
[2022-08-26] MEDS ORDERED: LORAZEPAM 0.25 MG IV PRN (22:02)
--- NOTE | 2022-08-26 22:37 | Critical Care Consultation ---
Date of Consultation August 26, 2022 Assessment & Plan (1) CVA (cerebrovascular accident due to intracerebral hemorrhage): Impression: 51-year-old male presents to the ICU following stroke alert where he received TNKase for left-sided weakness and strokelike symptoms. Patient to remain in ICU for 24 hours post TNKase administration per protocol. Neuro - Acute CVA?Patient currently experiencing visual changes with left-sided weakness and numbness, although he does have symptoms of headache and nerve pain which are unusual for an ischemic stroke. Initial NIH 11 -CT head negative for acute bleed or intracranial findings. CTA head and neck unremarkable. No cervical fractures noted on CTA neck -MRI head W/W0 contrast and cervical MRI pending read -TNKase administered at 2009 this evening per [facility] [place] stroke recommendations. Monitor in ICU 24 hours per protocol and follow-up repeat head CT at 24-hour andrew. -Follow-up TTE -Promethazine as needed for nausea -Hypercoag lab pending -Follow-up neurology recommendations Cardiac - No cardiac history. Troponin within normal limits. EKG with NSR and no ST elevation. QTc 414. Continuous monitoring on telemetry for now Respiratory - No history of pulmonary disease. Lungs clear to auscultation and maintaining oxygen saturation on room air. Monitor on continuous pulse ox for now GI - NPO. Follow-up swallow study and advance diet as tolerated RENAL/LYTES - Creatinine within normal limits, monitor routine BMP and replete electrolytes if indicated - Strict I's and O's ENDO - No history of diabetes or thyroid disease, ICU hyperglycemic protocol HEME - H&H stable. Type and screen collected. Monitor for signs of bleeding and transfuse if indicated ID - Lyme disease negative, SARS COVID-19 negative. No indication for infectious process at this time LINES/IV ACCESS - Peripheral IVs DVT PROPHYLAXIS - SCDs, hold anticoagulation following TNKase administration Thank you for allowing us to participate in the care of this patient. Please refer to my attending physician's documentation for any further recommendations. (2) Nausea: (3) Left-sided weakness: (4) Headache: History of Present Illness Attending Physician: Wes Grayson MD History of Present Illness Patient is a 51-year-old male with no significant past medical history that presented to the emergency department today with strokelike symptoms. Patient reported that around 430 this afternoon he began to have a headache with dizziness with left-sided weakness and numbness. This was associated with neck pain with radiation to the left arm and left leg. Patient denied any heavy lifting or trauma prior to this event and was in his usual state of health. Patient was taken for CT head, CTA head and neck which for negative for acute findings. He was evaluated with telestroke consult with [facility] who recommended administration of TNKase. Patient received TNKase within the 4-hour window at 2009. Patient now transferred to ICU for 24-hour post TNKase protocol. On arrival to the ICU the patient is alert and oriented. He has some sensation to the left upper and lower extremity but is certainly more dull and he is experiencing hemiplegia of the left side. He also reports some changes in vision in the left eye and continued throbbing headache. Patient states that he has neck pain when he turns his head towards the right as well. Patient states this this all started this afternoon and he was in his usual state of health prior to this event. He currently denies dizziness, syncope, shortness of breath, chest pain, palpitations, abdominal pain, nausea vomiting or diarrhea, swelling in hands or feet, fevers, cough, congestion. Patient now going for stat cervical and head MRI. Will further management in ICU for now. Allergies Allergy/AdvReac Type Severity Reaction Status Date / Time morphine Allergy Mild Hives Verified 08/26/22 20:40 Home Medications Medication Instructions Recorded Confirmed Type acetaminophen 650 mg 650 mg PO Q8H PRN Pain 08/26/22 08/26/22 History tablet,extended release cyclobenzaprine 10 mg tablet 10 mg PO BID PRN muscle spasms 08/26/22 08/26/22 History Patient History Social History Smoking Status: Current every day smoker Tobacco Type: Cigarettes and Cigars Cigarettes Per Day: 1 cigar per day; Hx Alcohol Use: No Hx Substance Use: No Preferred Language: Yakut Communication Ability: Effective [place] Required: No Beliefs That Will Affect Care: None Current Living Situation: Spouse and Family Current Living Situation Comment: Patient lives with spouse and children Other Information That Helps Us Care for You: No Feels Safe at Home: Yes Safety Concerns: Feels Safe At This Time Assistive Devices: Glasses Assistive Devices Comment: reading glasses Review of Systems Review of Systems: All systems reviewed & are unremarkable except as noted in HPI & below Physical Exam Constitutional: WD/WN, vitals as above well groomed, cooperative and comfortable; no acute distress Eyes: PERRL, conjunctivae normal, anicteric sclerae ENMT: external ear and nose normal, oropharynx normal Neck: trachea midline, no thyromegaly Respiratory: normal respiratory effort, lungs clear to auscultation Cardiovascular: RRR, no murmur, no edema Gastrointestinal (Abdomen): normal bowel sounds, soft, nontender, no hepatosplenomegaly Musculoskeletal: Left-sided hemiplegia. No musculoskeletal deformities. Unable to assess gait Skin: no rashes, warm and dry Neurologic: Left-sided hemiplegia, left-sided facial and upper and lower extremity numbness, tongue deviated to the right. Visual changes in the left eye. No confusion. No dysarthria right-sided strength and coordination intact. PERRLA. Psychiatric: A+Ox3, euthymic affect Results & Data Results & Data ([facility]) Vital Signs (Past 12 Hours) Vital Signs Temp Pulse Pulse Resp BP BP Pulse Ox 08/26/22 22:10 36.5 C 57 L 16 123/67 97 08/26/22 21:40 36.5 C 51 L 12 123/63 95 08/26/22 21:25 36.6 C 55 L 16 120/65 98 08/26/22 21:10 36.6 C 54 L 18 124/79 98 08/26/22 20:55 36.6 C 60 18 114/68 97 08/26/22 20:40 36.6 C 58 L 20 111/71 97 08/26/22 20:25 36.7 C 55 L 16 113/69 97 08/26/22 19:45 65 18 125/70 94 08/26/22 19:35 62 08/26/22 19:30 62 16 122/69 98 08/26/22 19:21 36.7 C 66 16 134/76 96 O2 Del Method 08/26/22 22:10 Room Air 08/26/22 21:40 Room Air 08/26/22 21:25 Room Air 08/26/22 21:10 Room Air 08/26/22 20:55 Room Air 08/26/22 20:40 Room Air 08/26/22 20:25 Room Air 08/26/22 19:45 Room Air 08/26/22 19:35 02/23/23 19:30 Room Air 08/26/22 19:21 Room Air Coding Level of Care Code INP/OBS CONSULT LVL 3, 45 MIN Diagnoses CVA (cerebrovascular accident due to intracerebral hemorrhage) I61.9 Nausea R11.0 Left-sided weakness R53.1 Headache R51.9
[2022-08-26] MEDS ORDERED: KETOROLAC TROMETHAMINE 15 MG/ML VIAL IV ONE (22:50)
[2022-08-26] MEDS ORDERED: fentaNYL citrate 100 MCG/2 ML VIAL IV STA (23:18)
[2022-08-26] MEDS ORDERED: fentaNYL citrate 100 MCG/2 ML VIAL ONE (23:21)
[2022-08-27] MEDS ORDERED: GADOBUTROL 65ML VIAL IV ONE ×2 (00:30→13:24)
[2022-08-27] MEDS ORDERED: fentaNYL citrate 100 MCG/2 ML VIAL IV PRN (05:34)
[2022-08-27] MEDS ORDERED: fentaNYL citrate 100 MCG/2 ML VIAL ONE (05:35)
[2022-08-27 06:04] LABS: Basophils # (auto) 0.13 K/uL (0-0.2); Basophils % (auto) 2.7 %; Eosinophils # (auto) 0.21 K/uL (0-0.50); Eosinophils % (auto) 4.3 %; Hematocrit (blood only) 38.8 % (42.0-52.0); Hemoglobin 13.4 g/dl (14.0-18.0); Immature Granulocytes # (auto) 0.02 K/uL (0.01-0.20); Immature Granulocytes % (auto) 0.4 %; Lymphocytes # (auto) 1.75 K/uL (1.2-3.4); Lymphocytes % (auto) 35.7 %; Mean Corpuscular Hemoglobin 30.9 pg (25.0-34.0); Mean Corpuscular Hgb Conc 34.5 g/dL (32.0-36.0); Mean Corpuscular Volume 89.6 fL (80.0-100.0); Mean Platelet Volume 9.9 fL (9.4-12.4); Monocytes # (auto) 0.48 K/uL (0.11-0.59); Monocytes % (auto) 9.8 %; Neutrophils # (auto) 2.31 K/uL (1.40-6.50); Neutrophils % (auto) 47.1 %; Platelet Count 248 K/uL (130-400); RDW Coefficient of Variation 13.1 % (11.5-14.5); RDW Standard Deviation 43.3 fL (36.4-46.3); Red Blood Count 4.33 M/uL (4.70-6.10)
[2022-08-27 06:15] LABS: BUN Creatinine Ratio 7.7 (10-20); Calcium 8.8 mg/dl (8.5-10.1); Chol HDL Ratio 2.9 (0-5); Creatinine Clr Calc Pharmacy 107.8 ml/min; Est GFR (African American) 114.3 ml/min; Est GFR (Non-African American) 98.6 ml/min; Potassium 4.1 mmol/L (3.5-5.1)
[2022-08-27 07:25] LABS: Fibrinogen 236 mg/dl (184-400)
--- NOTE | 2022-08-27 07:39 | XRay Report ---
SINGLE VIEW CHEST CLINICAL HISTORY: Atypical chest pain. FINDINGS: 2 AP, portable, upright chest radiographs are compared to study dated 01/24/2007. The cardio mediastinal silhouette is unremarkable. Mild emphysematous change is suspected. Nonspecific interstit ial thickening is likely chronic. No airspace consolidation or large pleural effusion is identified. There are scattered calcified granulomas. No pneumothorax is seen. The bony thorax is grossly intact. IMPRESSION: Mild emphysematous change with no acute cardiopulmonary abnormality identified. ACT 112: Negative or not required by law. Electronically signed by: Deniz Ventura M.D. 08/27/2022 7:38 AM
[2022-08-27] MEDS: ICU Protocol for HYPERglycemia SCH ×4 (08:09→21:15)
--- NOTE | 2022-08-27 08:46 | Magnetic Resonance Report ---
MR brain wo/w con CLINICAL HISTORY: CVA TECHNIQUE: Multiplanar and multisequence MR images of the brain were obtained prior to and following administration of gadolinium contrast. Comparison: Comparison is made to CTA head and neck 08/26/2022 FINDINGS: No abnormal restricted diffusion is identified. The white matter is unremarkable. The ventricular sys tem is normal in appearance. No mass or abnormal enhancement is seen. There is no mass effect or midl ine shift. There is no evidence of acute intraparenchymal hemorrhage. No extra axial fluid collection s are seen. The corpus callosum, pituitary gland, and cerebellar tonsils appear grossly unremarkable. Incidental note is made of tortuosity of the right optic nerve, however no edema is seen about the n erve. Flow voids of the major intracranial arterial vessels are identified. The imaged portions of the para nasal sinuses, mastoid air cells, and orbits are unremarkable. IMPRESSION: No acute abnormalities. ACT 112: Negative or not required by law. Electronically signed by: Gaudencio Rosas M.D. 08/27/2022 8:44 AM
--- NOTE | 2022-08-27 08:56 | Critical Care Progress Note ---
Date of Service August 27, 2022 Assessment & Plan (1) Stroke-like symptoms: (2) Nausea: (3) Left-sided weakness: (4) Headache: Plan Impression: 51-year-old male presents to the ICU following stroke alert where he received TNKase for left-sided weakness and strokelike symptoms. Patient to remain in ICU for 24 hours post TNKase administration per protocol. Neuro - Acute CVA?CT scans and MRI scans of brain negative. Await MRI neck results. Question torticollis versus complex migraine versus other. Await neurology input. Start high-dose thiamine. He needs CT 24 hours after TNKase to monitor for bleed. Cardiac - No cardiac history. Troponin within normal limits. EKG with NSR and no ST elevation. QTc 414. Continuous monitoring on telemetry for now Respiratory - No history of pulmonary disease. Lungs clear to auscultation and maintaining oxygen saturation on room air. Monitor on continuous pulse ox for now GI - NPO. Follow-up swallow study and advance diet as tolerated RENAL/LYTES - Creatinine within normal limits, monitor routine BMP and replete electrolytes if indicated - Strict I's and O's ENDO - No history of diabetes or thyroid disease, ICU hyperglycemic protocol HEME - H&H stable. Type and screen collected. Monitor for signs of bleeding and transfuse if indicated ID - Lyme disease negative, SARS COVID-19 negative. No indication for infectious process at this time LINES/IV ACCESS - Peripheral IVs DVT PROPHYLAXIS - SCDs, hold anticoagulation following TNKase administration Thank you for allowing us to participate in the care of this patient. Please refer to my attending physician's documentation for any further recommendations. Admission and Anticipated Discharge Date Admission Date: August 26, 2022 Subjective Patient describes continued headache that is mostly frontal and throbbing. Denies any aura. Denies any nausea or vomiting. He denies shortness of breath. His left extremities appear flaccid. He is able to move his right extremity as well. No change in neurological symptoms after TNKase. Review of Systems Review of Systems: All systems reviewed & are unremarkable except as noted in HPI & below Physical Exam Constitutional: WD/WN, vitals as above well groomed, cooperative and comfortable; no acute distress Eyes: PERRL, conjunctivae normal, anicteric sclerae ENMT: external ear and nose normal, oropharynx normal Neck: trachea midline, no thyromegaly Respiratory: normal respiratory effort, lungs clear to auscultation Cardiovascular: RRR, no murmur, no edema Gastrointestinal (Abdomen): normal bowel sounds, soft, nontender, no hepatosplenomegaly Musculoskeletal: Left-sided hemiplegia. No musculoskeletal deformities. Unable to assess gait Skin: no rashes, warm and dry Neurologic: Left-sided hemiplegia, left-sided facial and upper and lower extremity numbness, tongue deviated to the right. Visual changes in the left eye. No confusion. No dysarthria right-sided strength and coordination intact. PERRLA. Psychiatric: A+Ox3, euthymic affect Results & Data Results & Data ([facility]) Vital Signs (Past 12 Hours) Vital Signs Temp Pulse Pulse Resp BP BP Pulse Ox 08/27/22 08:10 36.8 C 54 L 18 108/66 96 08/27/22 07:10 36.8 C 55 L 16 104/61 95 08/27/22 06:11 36.8 C 53 L 14 100/58 L 96 08/27/22 05:28 36.8 C 08/27/22 05:11 36.7 C 55 L 14 102/59 L 97 08/27/22 04:11 36.5 C 51 L 14 106/62 96 08/27/22 03:41 36.5 C 59 L 14 107/63 96 08/27/22 03:11 36.5 C 48 L 14 93/60 L 96 08/27/22 02:41 36.5 C 52 L 14 112/65 96 08/27/22 02:11 36.4 C L 54 L 14 99/62 L 96 08/27/22 01:41 36.5 C 55 L 14 106/67 96 08/27/22 01:00 54 L 16 99 08/27/22 01:00 112/63 08/27/22 00:45 115/68 08/27/22 00:45 51 L 14 97 08/27/22 00:36 52 L 23 96 08/27/22 00:36 108/66 08/27/22 00:35 54 L 16 08/26/22 22:46 109/62 08/26/22 22:46 54 L 16 97 08/26/22 22:30 55 L 14 96 08/26/22 22:30 112/60 08/26/22 22:16 123/63 08/26/22 22:16 56 L 15 96 08/26/22 22:00 58 L 12 95 08/26/22 22:00 123/67 08/26/22 21:53 52 L 14 98 08/26/22 21:53 111/69 08/26/22 21:30 59 L 16 97 08/26/22 21:27 52 L 15 97 08/26/22 21:27 120/65 08/26/22 21:12 124/79 08/26/22 21:12 61 15 95 08/26/22 21:00 60 22 98 08/26/22 20:58 56 L 15 96 08/26/22 20:58 114/68 08/27/22 01:10 36.5 C 52 L 12 112/63 96 08/27/22 00:40 36.5 C 54 L 14 120/50 L 94 08/27/22 00:10 36.5 C 55 L 18 120/50 L 96 08/26/22 23:40 36.5 C 55 L 14 126/49 L 96 08/26/22 23:10 36.7 C 52 L 14 126/60 96 08/26/22 22:40 36.5 C 51 L 14 135/65 96 08/26/22 22:10 36.5 C 52 L 14 121/67 94 08/26/22 21:55 36.5 C 51 L 14 123/67 96 08/26/22 22:10 36.5 C 57 L 16 123/67 97 08/26/22 21:40 36.5 C 51 L 12 123/63 95 08/26/22 21:25 36.6 C 55 L 16 120/65 98 08/26/22 21:10 36.6 C 54 L 18 124/79 98 08/26/22 20:55 36.6 C 60 18 114/68 97 O2 Del Method 08/27/22 08:10 Room Air 08/27/22 07:10 Room Air 08/27/22 06:11 Room Air 08/27/22 05:28 08/27/22 05:11 Room Air 08/27/22 04:11 Room Air 08/27/22 03:41 Room Air 08/27/22 03:11 Room Air 08/27/22 02:41 Room Air 08/27/22 02:11 Room Air 08/27/22 01:41 Room Air 08/27/22 01:00 08/27/22 01:00 08/27/22 00:45 08/27/22 00:45 08/27/22 00:36 08/27/22 00:36 08/27/22 00:35 08/26/22 22:46 08/26/22 22:46 08/26/22 22:30 08/26/22 22:30 08/26/22 22:16 08/26/22 22:16 08/26/22 22:00 08/26/22 22:00 08/26/22 21:53 08/26/22 21:53 08/26/22 21:30 08/26/22 21:27 08/26/22 21:27 08/26/22 21:12 08/26/22 21:12 08/26/22 21:00 08/26/22 20:58 08/26/22 20:58 08/27/22 01:10 Room Air 08/27/22 00:40 Room Air 08/27/22 00:10 Room Air 08/26/22 23:40 Room Air 08/26/22 23:10 Room Air 08/26/22 22:40 Room Air 08/26/22 22:10 Room Air 08/26/22 21:55 Room Air 08/26/22 22:10 Room Air 08/26/22 21:40 Room Air 08/26/22 21:25 Room Air 08/26/22 21:10 Room Air 08/26/22 20:55 Room Air Coding Level of Care Code 51908 SUB INP/OBS CARE MIN Diagnoses Stroke-like symptoms R29.90 Nausea R11.0 Left-sided weakness R53.1 Headache R51.9
--- NOTE | 2022-08-27 08:57 | Magnetic Resonance Report ---
MRI OF THE CERVICAL SPINE WITHOUT IV CONTRAST CLINICAL HISTORY: Left-sided weakness. Neck pain. COMPARISON STUDY: CT angiogram of the neck dated 08/26/2022. TECHNIQUE: MRI of the cervical spine is performed utilizing various T1 and T2-weighted sequences in [facility] axial and sagittal planes. IV contrast was not administered for this examination. The examination is degraded by motion artifact. FINDINGS: Cervical spine: Vertebral body height and alignment are maintained throughout the cervical spine. Nor mal marrow signal intensity is preserved throughout the visualized bony structures. The atlantodens a rticulation is maintained. The spinous processes appear intact. No destructive bony process is seen. Intervertebral discs: There is moderate degenerative disc desiccation. The disc spaces are preserved. Spinal cord: The cervical cord is normal in morphology and signal intensity. C2-C3: Unremarkable. C3-C4: Unremarkable. C4-C5: Unremarkable. C5-C6: Mild facet arthropathy is of no consequence. The central canal and neural foramina are patent. C6-C7: Unremarkable. C7-T1: Unremarkable. Soft tissues: The prevertebral and paraspinous soft tissues are normal in appearance. Brain parenchyma: The visualized brain parenchyma is normal as visualized. IMPRESSION: 1. There is no disc herniation, central canal stenosis, or neuroforaminal narrowing seen throughout [facility] cervical spine. 2. The cervical cord is normal in morphology and signal intensity. 3. No destructive bony process is seen. Dictated: 08/27/2022 8:23 AM Transcribed: 08/27/2022 8:32 AM Isai [id number] [email or web address] Electronically signed by: Deniz Ventura M.D. 08/27/2022 8:54 AM
[2022-08-27] MEDS: THIAMINE HCL 500 MG in SODIUM CHLORIDE 0.9% 50 ML IV SCH ×3 (09:50→20:53)
--- NOTE | 2022-08-27 10:08 | Neurology Consultation ---
Date of Consultation August 27, 2022 Assessment & Plan (1) Left hemiplegia: (2) Left sided numbness: (3) Headache: (4) Neck pain: (5) Stroke-like symptoms: Plan 51-year-old male presenting with flaccid weakness of the left arm and leg, associated complete anesthesia of the left arm and leg, low to moderate grade head and neck pain, status post administration of TNKase, completely unremarkable imaging including CT angiography of the head and neck, and MRI of the brain and C-spine, positive Burks sign noted when assessing patient's flaccid left lower extremity. Further, no Babinski sign, no significant asymmetry and deep tendon reflexes, no associated left lower facial droop. Patient's clinical presentation could be consistent with cervical transverse myelitis, or possibly a right hemispheric stroke. However, there are some inconsistencies on his neurological examination as above. Complicated migraine possible although no prior history of migraine. There is nothing in patient's clinical history that would suggest seizure disorder with associated Ambrosio's par alysis. Conversion disorder would of course remain a diagnosis of exclusion but certainly possible given positive Burks's sign and other inconsistencies as above. Case discussed with electrical high tension tester physician. I have ordered a repeat MRI of the brain and cervical spine. Complete stroke evaluation per protocol, echocardiography, etc. No antiplatelet medications or other blood thinners for 24 hours after administration of TNKase. Continue management of blood pressure, current blood pressure acceptable. Consider starting a statin, goal LDL 70 Follow-up the results of hypercoagulable panel Consider obtaining mobile cardiac outpatient telemetry Would also check a vitamin B12 level History of Present Illness Reason for Consultation: left sided weakness Requesting Physician: Ketan Gottlieb MD Attending Physician: Wes Grayson MD History of Present Illness The patient is a 51-year-old male who presented to the emergency department yesterday with a chief complaint of weakness, nausea, diffuse left-sided pain, left arm and leg, associated headache, neck pain dizziness. He reports total anesthesia for the left arm and leg, the left arm and leg were flaccid during his initial evaluation, may have had a mild left facial droop as well. Past medical history generally unremarkable, does not take any prescription medications. Endorses occasional tobacco use. Given the severity of his symptoms, notably flaccid left-sided weakness, a telestroke consultation was obtained. TNKase was administered. He was admitted to the ICU for further evaluation and management. His symptoms have not significantly changed this morning. He continues to complain of a low to moderate grade frontal headache, continues to display flaccid weakness for the left arm and leg, continues to report complete anesthesia for the left arm and leg. Also endorses some vision difficulties of the left. He denies a history of migraine, stroke or TIA. Again, no significant past medical history. Denies any antecedent illness or trauma or significant stressor. I did independently review patient's extensive neuroimaging that has been completed thus far including CT of the head, CT angiography of the head and neck, MRI of the brain and cervical spine. In summary, the studies are completely normal. No vascular abnormality, no evidence of hemorrhage, acute or subacute stroke. Spinal cord imaging normal, no evidence of myelitis or demyelination. No evidence of disc herniation or spinal stenosis. Allergies Allergy/AdvReac Type Severity Reaction Status Date / Time morphine Allergy Mild Hives Verified 08/26/22 20:40 Home Medications Medication Instructions Recorded Confirmed Type acetaminophen 650 mg 650 mg PO Q8H PRN Pain 08/26/22 08/26/22 History tablet,extended release cyclobenzaprine 10 mg tablet 10 mg PO BID PRN muscle spasms 08/26/22 08/26/22 History Patient History Medical History (Updated 08/27/22 @ 10:27 by Xander Stark MD) Stroke-like symptoms Social History Smoking Status: Current every day smoker Tobacco Type: Cigarettes and Cigars Cigarettes Per Day: 1 cigar per day; Hx Alcohol Use: No Hx Substance Use: No Preferred Language: Italian Communication Ability: Effective Electrical Products Engineer Required: No Beliefs That Will Affect Care: None Current Living Situation: Spouse and Family Current Living Situation Comment: Patient lives with spouse and children Other Information That Helps Us Care for You: No Feels Safe at Home: Yes Safety Concerns: Feels Safe At This Time Assistive Devices: Glasses Assistive Devices Comment: reading glasses Review of Systems Constitutional: no fever and no chills Eyes: as per Subjective / HPI Ear, Nose, Mouth, Throat: no ear pain and no hearing loss Respiratory: no cough and no dyspnea Cardiovascular: no chest pain and no palpitations Gastrointestinal: + nausea Musculoskeletal: no myalgia Integumentary: no rash and no lesions Neurologic: as per Subjective / HPI Psychiatric: no depression and no anxiety Hematologic / Lymphatic: no easy bleeding and no easy bruising Exam (Neuro) Constitutional: well developed and well nourished; no acute distress Eyes: normal visual molina by confrontation, PERRL, normal accommodation and EOM intact bilaterally; no fundoscopic abnormality, no nystagmus and no papilledema Cardiovascular: Vessels: normal carotid upstroke; no carotid bruit Neurologic: Oriented to:: Person, Place and Time Memory: Short Term Intact and Remote Intact Attention: Span Intact and Concentration Intact Language: Naming Objects and Repeating Phrases Speech Fluency: negative Dysarthria Speech Aphasia: negative Aphasia Fund of Knowledge: Current Ilana nts, Past History and Vocabulary Cranial Nerves: Normal II (Visual molina full to confrontation, visual acuity normal), III, IV, (Pupils equal round reactive to light and accommodation, eye movements normal), V (Facial sensation intact), VII (There is no facial droop or weakness), VIII (Hearing intact), IX, X (Palate elevates to midline), XI (Shoulder shrug intact) and XII (Tongue protrudes to midline) Motor Strength: Hemiplegia Laterality: Left Motor Tone: Normal Lower Extremities and Normal Upper Extremities Flaccidity: Hemiflaccidity Laterality: Left Muscle Bulk/Involuntary Movements: No Involuntary Movements; negative Muscle Atrophy Sensation: Light Touch Intact, Pain/Temperature Intact, Vibration Intact and Proprioception Intact Coordination: Normal; negative Limited Balance, Dysdiadochokinesia, Finger-Nose Abnormal or Heel-Cristina Abnormal Deep Tendon Reflexes: Rt Triceps: 2+, Lt Triceps: 2+, Rt Biceps: 2+, Lt Biceps: 2+, Rt Brachioradialis: 2+, Lt Brachioradialis: 2+, Rt Patellar: 2+, Lt Patellar: 2+, Rt Ankle: 2+ and Lt Ankle: 2+ Special Tests: negative Babinski Present Details: gait could not be tested, positive Burks's sign when evaluating the flaccid weakness of the left lower limb Results & Data ([facility]) Vital Signs (Past 12 Hours) Vital Signs Temp Pulse Pulse Resp BP BP Pulse Ox 08/27/22 09:10 36.6 C 60 16 120/68 96 08/27/22 08:10 36.8 C 54 L 18 108/66 96 08/27/22 07:10 36.8 C 55 L 16 104/61 95 08/27/22 06:11 36.8 C 53 L 14 100/58 L 96 08/27/22 05:28 36.8 C 08/27/22 05:11 36.7 C 55 L 14 102/59 L 97 08/27/22 04:11 36.5 C 51 L 14 106/62 96 08/27/22 03:41 36.5 C 59 L 14 107/63 96 08/27/22 03:11 36.5 C 48 L 14 93/60 L 96 08/27/22 02:41 36.5 C 52 L 14 112/65 96 08/27/22 02:11 36.4 C L 54 L 14 99/62 L 96 08/27/22 01:41 36.5 C 55 L 14 106/67 96 08/27/22 01:00 54 L 16 99 08/27/22 01:00 112/63 08/27/22 00:45 115/68 08/27/22 00:45 51 L 14 97 08/27/22 00:36 52 L 23 96 08/27/22 00:36 108/66 08/27/22 00:35 54 L 16 08/26/22 22:46 109/62 08/26/22 22:46 54 L 16 97 08/26/22 22:30 55 L 14 96 08/26/22 22:30 112/60 08/26/22 22:16 123/63 08/26/22 22:16 56 L 15 96 08/26/22 22:00 58 L 12 95 08/26/22 22:00 123/67 08/27/22 01:10 36.5 C 52 L 12 112/63 96 08/27/22 00:40 36.5 C 54 L 14 120/50 L 94 08/27/22 00:10 36.5 C 55 L 18 120/50 L 96 08/26/22 23:40 36.5 C 55 L 14 126/49 L 96 08/26/22 23:10 36.7 C 52 L 14 126/60 96 08/26/22 22:40 36.5 C 51 L 14 135/65 96 08/26/22 22:10 36.5 C 52 L 14 121/67 94 08/26/22 22:10 36.5 C 57 L 16 123/67 97 O2 Del Method 08/27/22 09:10 Room Air 08/27/22 08:10 Room Air 08/27/22 07:10 Room Air 08/27/22 06:11 Room Air 08/27/22 05:28 08/27/22 05:11 Room Air 08/27/22 04:11 Room Air 08/27/22 03:41 Room Air 08/27/22 03:11 Room Air 08/27/22 02:41 Room Air 08/27/22 02:11 Room Air 08/27/22 01:41 Room Air 08/27/22 01:00 08/27/22 01:00 08/27/22 00:45 08/27/22 00:45 08/27/22 00:36 08/27/22 00:36 08/27/22 00:35 08/26/22 22:46 08/26/22 22:46 08/26/22 22:30 08/26/22 22:30 08/26/22 22:16 08/26/22 22:16 08/26/22 22:00 08/26/22 22:00 08/27/22 01:10 Room Air 08/27/22 00:40 Room Air 08/27/22 00:10 Room Air 08/26/22 23:40 Room Air 08/26/22 23:10 Room Air 08/26/22 22:40 Room Air 08/26/22 22:10 Room Air 08/26/22 22:10 Room Air Laboratory Results WBC 4.90, hemoglobin 13.4, hematocrit 38.8, MCV 89.6, platelet count 248, sodium 139, potassium 4.1, BUN 7, creatinine 0.91, glucose 96, triglycerides 73, cholesterol 172, LDL 97, VLDL 15, HDL 60, hypercoagulable panel pending, Lyme screening negative, SARS-CoV-2 testing negative Diagnostic Findings Independent review of CT of the head, CT angiography of the head and neck, MRI of the brain and C-spine as described in the history of present illness. Electrocardiogram reveals a normal sinus rhythm, possible LVH, 60 bpm. PG Care Time/CCT Total # of Minutes Spent Total Time Spent with Patient: Total time spent is greater than 50% in coordination of care (as documented) at patient's floor/unit and/or counseling patient: 90 minutes Coding Level of Care Code 35077 INT INP/OBS CARE 3/75MIN Diagnoses Left hemiplegia G81.94 Left sided numbness R20.0 Headache R51.9 Neck pain M54.2 Stroke-like symptoms R29.90
--- NOTE | 2022-08-27 11:33 | Electrocardiogram Report ---
Test Reason : Blood Pressure : / mmHG Vent. Rate : 060 BPM Atrial Rate : 060 BPM P-R Int : 160 ms QRS Dur : 094 ms QT Int : 414 ms P-R-T Axes : 069 076 070 degrees QTc Int : 414 ms Poor data quality, interpretation may be adversely affected Normal sinus rhythm Voltage criteria for left ventricular hypertrophy Abnormal ECG When compared with ECG of 11-APR-2005 21:10, No significant change was found Confirmed by Darvin Allison ([id number]) on 08/27/2022 11:32:51 AM Referred By: REFERRED SELF Confirmed By:Saroj Allison
--- NOTE | 2022-08-27 13:56 | Magnetic Resonance Report ---
MRI OF THE BRAIN COMBO CLINICAL HISTORY: Headache. Left-sided weakness. COMPARISON STUDY: MRI of the brain dated 08/26/2022. TECHNIQUE: MRI of the brain was performed utilizing various T1 and T2-weighted sequences in the axial , sagittal, and coronal planes. Contrast-enhanced sequences were acquired following the administratio n of 8.5 cc of Gadavist. The examination is performed using the multiple sclerosis protocol. FINDINGS: Brain parenchyma: The brain parenchyma is normal in appearance. No white matter abnormality is seen. There is no hemorrhage or mass effect. There is no restricted diffusion typical for acute ischemia. N o enhancing mass lesion is identified on the postcontrast images. Hamm-white matter differentiation i s preserved. No extra-axial fluid collection is seen. 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 The cerebellar tonsils are normal in configuration. Ventricles, sulci, and cisterns: Normal in configuration. Pituitary and sella: Unremarkable. Intracranial vasculature: Normal flow voids are maintained at the skull base. Orbits: The bony orbits are grossly intact. Orbital contents are normal in appearance. Sinuses and mastoids: There is trace mucosal thickening and a 7 mm retention cyst noted in the left m axillary antrum. The remaining paranasal sinuses and mastoid air cells are clear. Calvarium: Unremarkable. Cervical cord: Partially visualized cervical spinal cord is normal in morphology and signal intensity . IMPRESSION: No acute intracranial abnormality. There has been no significant change from yesterday. ACT 112: Negative or not required by law. Electronically signed by: Deniz Ventura M.D. 08/27/2022 1:54 PM
--- NOTE | 2022-08-27 14:39 | Magnetic Resonance Report ---
CLINICAL HISTORY: flaccid left sided weakness TECHNIQUE: MRI of the cervical spine is performed utilizing various T1 and T2 sequences in the axial and sagittal planes. IV contrast was administered for this examination. Comparison: Comparison is made to MRI cervical spine 08/26/2022 FINDINGS: The alignment is anatomical. Disks are normal in height and signal. C2-C3: Unremarkable. C3-C4: Unremarkable. C4-C5: Unremarkable. C5-C6: Unremarkable. C6-C7: Unremarkable. C7-T1: Unremarkable. The spinal ligaments are intact, without evidence of disruption or abnormal signal intensity. The spi nal cord is normal in signal intensity and there is no evidence of cord contusion. There is no eviden ce of an extradural, intradural, extramedullary or intramedullary lesion. Visualized soft tissues are normal. Visualized brain parenchyma is normal. IMPRESSION: No evidence of cord compression or significant neuroforaminal narrowing. ACT 112: Negative or not required by law. Electronically signed by: Gaudencio Rosas M.D. 08/27/2022 2:37 PM
[2022-08-27] MEDS ORDERED: ACETAMINOPHEN 1,000 MG/100 ML VIAL IV STA (15:03)
[2022-08-27] MEDS ORDERED: oxyCODONE HCL IR 5 MG TAB (IMMEDIATE RELEASE) PO STA (15:09)
--- NOTE | 2022-08-27 17:18 | Hospitalist Progress Note ---
Date of Service August 27, 2022 Assessment & Plan (1) Left-sided weakness: Plan: Left-sided flaccid paralysis and complete anesthesia Initial brain MRI: No acute CVA Repeat brain MRI today: No acute process CT angiogram: Unrevealing Echocardiogram: Grade 1 diastolic dysfunction, mild to moderate mitral regurgitation Given TNK 8 PM last night Discussed with neurologist Dr. Xander Stark Recommend transfer to [facility], but upon discussion with [facility] neurologist Dr. Suarez, recommend to continue monitoring at [facility] with possible conversion disorder We will order repeat spine imaging tomorrow Continue supportive care with as needed analgesics Neurochecks LP may be considered 48 hours after the TNK DVT prophylaxis. Lovenox subcu 24 hours post tPA if no bleed Full code Admission and Anticipated Discharge Date Admission Date: August 26, 2022 Subjective Follow-up for left-sided weakness, etc. Seen resting in bed, awake and alert, oriented x3 Still reporting complete weakness and numbness of left upper and lower extremity Also reporting moderate frontal headache, seems to be worsened by light Denies nausea or vomiting, shortness of breath, chest pain, palpitations, fevers or chills No other symptom Review of Systems Review of Systems: all noted and negative except for above Physical Exam Physical Exam: General- oriented x 3, not in distress, speaks in sentences with no effort or accessory muscle use Eyes- anicteric Neck- no JVD Lungs- clear BS bilaterally, no rales/wheezes Heart- normal rate, regular rhythm; no murmurs Abdomen- normal bowel sounds, nondistended, soft, nontender Extremities- no pretibial edema, no calf tenderness Neuro- alert, oriented x 3;Motor strength 0/5 on the left, sensory 0% on the left Essential normal on the right Skin- warm & dry Results & Data Results & Data ([facility]) Vital Signs (Past 12 Hours) Vital Signs Temp Pulse Pulse Resp BP BP Pulse Ox 08/27/22 12:02 63 16 104/48 L 97 08/27/22 14:10 36.8 C 56 L 16 119/72 96 08/27/22 13:52 36.8 C 56 L 15 105/63 95 08/27/22 14:00 59 L 15 95 08/27/22 14:00 110/65 08/27/22 13:53 56 L 12 08/27/22 13:52 105/63 08/27/22 11:10 36.7 C 53 L 16 109/61 96 08/27/22 10:10 36.7 C 61 16 116/57 L 95 08/27/22 09:10 36.6 C 60 16 120/68 96 08/27/22 08:10 36.8 C 54 L 18 108/66 96 08/27/22 07:10 36.8 C 55 L 16 104/61 95 08/27/22 06:11 36.8 C 53 L 14 100/58 L 96 08/27/22 05:28 36.8 C O2 Del Method 08/27/22 12:02 Room Air 08/27/22 14:10 Room Air 08/27/22 13:52 Room Air 08/27/22 14:00 Room Air 08/27/22 14:00 08/27/22 13:53 08/27/22 13:52 08/27/22 11:10 Room Air 08/27/22 10:10 Room Air 08/27/22 09:10 Room Air 08/27/22 08:10 Room Air 08/27/22 07:10 Room Air 08/27/22 06:11 Room Air 08/27/22 05:28 all noted and reviewed including below
[2022-08-27] MEDS ORDERED: ACETAMINOPHEN 325 MG TAB PO PRN (20:57)
[2022-08-27] MEDS: oxyCODONE HCL IR 5 MG TAB (IMMEDIATE RELEASE) PO PRN (21:33)
--- NOTE | 2022-08-28 09:25 | CT Scan Report ---
HEAD CT NONCONTRAST CT DOSE: 821.00 mGycm HISTORY: Left-sided weakness. Possible stroke. ff up post TNK administration TECHNIQUE: Multiaxial CT images of the head were performed without the use of intravenous contrast. A utomated exposure control was utilized for this study. A dose lowering technique was utilized adheri ng to the principles of ALARA. Comparison: Head CT 08/26/2022. Findings: The paranasal sinuses and mastoid air cells are clear. The calvarium and skull base are int act. The ventricles and sulci are within normal limits. There is no mass, hematoma, midline shift, or acute infarct. Impression: No acute intracranial abnormality. ACT 112: Negative or not required by law. Electronically signed by: Arik Shore M.D. 08/28/2022 9:24 AM
[2022-08-28] MEDS: THIAMINE HCL 500 MG in SODIUM CHLORIDE 0.9% 50 ML IV SCH ×3 (09:35→20:26)
[2022-08-28] MEDS: ICU Protocol for HYPERglycemia SCH (09:35)
--- NOTE | 2022-08-28 13:36 | Hospitalist Progress Note ---
Date of Service August 28, 2022 Assessment & Plan (1) Left hemiplegia: (2) Left sided numbness: Plan: (1) Left-sided weakness: Plan: Left-sided flaccid paralysis and complete anesthesia Initial brain MRI: No acute CVA Repeat brain MRI today: No acute process CT angiogram: Unrevealing Echocardiogram: Grade 1 diastolic dysfunction, mild to moderate mitral regurgitation Given TNK 8 PM 08/[address] head 24 hours post TNK: No hemorrhage noted Discussed with neurologist Dr. Xander Stark Recommend transfer to [facility], but upon discussion with [facility] neurologist Dr. Suarez, recommend to continue monitoring at [facility] with possible conversion disorder 08/28 Patient tried to participate with PT today Able to sit up in bed, and stand with walker As per physical therapist, they observed quadricep contraction when patient was sitting up, but patient had no active movement on command Discussed with Dr. Stark Will start trial of verapamil for hemiplegic migraine Flexeril also ordered for muscle spasm Patient declining thoracic and lumbar spine MRI today as it was giving him headache and blurry vision We will try obtaining this tomorrow Possible EEG and lumbar tap on Tuesday DVT prophylaxis. Lovenox subcu tomorrow if okay with neurology Full code Admission and Anticipated Discharge Date Admission Date: August 26, 2022 Subjective Follow-up for left hemiplegia, anesthesia, etc. Initially observed while having physical therapy session Patient is awake and alert, not in distress Cooperative with physical therapy, able to sit up at the edge of the bed Managed to stand with two-person assist and holding onto walker Struggling to take step with his left leg Reevaluated after PT session Patient states he feels okay overall Still having significant left upper arm and lower extremity weakness and numbness Reports pain in the left upper arm-sharp No headache today Blurred vision also resolved No problems swallowing No other symptoms Review of Systems Review of Systems: all noted and negative except for above Physical Exam Physical Exam: General- oriented x 3, not in distress, speaks in sentences with no effort or accessory muscle use Eyes- anicteric Neck- no JVD Lungs- clear breath sounds bilaterally, no rales/wheezes Heart- normal rate, regular rhythm; no murmurs Abdomen- normal bowel sounds, nondistended, soft, nontender Extremities- no pretibial edema, no calf tenderness Neuro- alert, oriented x 3; left side 0 out of 5 motor strength Sensation 0% left side No other focal neurologic deficits noted Skin- warm & dry Results & Data Results & Data ([facility]) Vital Signs (Past 12 Hours) Vital Signs Temp Pulse Pulse Resp BP BP Pulse Ox 08/28/22 13:01 97 08/28/22 11:00 61 17 96 08/28/22 10:59 112/68 08/28/22 10:59 74 16 97 08/28/22 10:00 56 L 16 95 08/28/22 10:00 109/63 08/28/22 09:00 53 L 14 96 08/28/22 09:00 127/59 L 08/28/22 08:00 57 L 21 96 08/28/22 08:00 102/65 08/28/22 07:00 47 L 16 97 08/28/22 07:00 105/67 08/28/22 06:00 46 L 13 96 08/28/22 06:00 102/65 08/28/22 12:00 36.7 C 96 H 20 149/91 H 98 08/28/22 08:00 36.7 C 56 L 18 105/67 98 08/28/22 08:00 52 L 08/28/22 05:00 52 L 17 96 08/28/22 05:00 120/72 08/28/22 04:00 50 L 16 96 08/28/22 04:00 102/64 08/28/22 03:00 49 L 12 96 08/28/22 03:00 117/54 L 08/28/22 02:00 56 L 15 95 08/28/22 02:00 114/55 L 08/28/22 04:24 36.7 C O2 Del Method 08/28/22 13:01 08/28/22 11:00 08/28/22 10:59 08/28/22 10:59 08/28/22 10:00 08/28/22 10:00 08/28/22 09:00 08/28/22 09:00 08/28/22 08:00 08/28/22 08:00 08/28/22 07:00 08/28/22 07:00 08/28/22 06:00 08/28/22 06:00 08/28/22 12:00 Room Air 08/28/22 08:00 Room Air 08/28/22 08:00 08/28/22 05:00 Room Air 08/28/22 05:00 08/28/22 04:00 08/28/22 04:00 08/28/22 03:00 08/28/22 03:00 08/28/22 02:00 08/28/22 02:00 08/28/22 04:24 all noted and reviewed including below
[2022-08-28] MEDS ORDERED: CYCLOBENZAPRINE HCL 10 MG TAB PO STA (13:39)
[2022-08-28] MEDS ORDERED: VERAPAMIL HCL 120 MG TABCR PO SCH (14:15)
[2022-08-28] MEDS: VERAPAMIL HCL 40 MG TAB PO SCH ×2 (14:37→20:12)
[2022-08-28] MEDS: CYCLOBENZAPRINE HCL 10 MG TAB PO PRN (20:11)
--- NOTE | 2022-08-29 08:31 | Neurology Progress Note ---
Date of Service August 29, 2022 Assessment & Plan (1) Left sided numbness: (2) Left-sided weakness: Plan 51-year-old male with persistent left-sided weakness and numbness, arm and leg, sparing the face. Patient has had two normal brain and cervical spine MRIs thus far. He has several signs on examination suggestive of pseudoparalysis or functional weakness including a positive Burks sign and positive drop test. Furthermore, his deep tendon reflexes are normal and symmetrical and he has no Babinski sign. More likely than not, he has conversion disorder. I did discuss his case again with Dr. Grayson. I have recommended additional evaluation including MRI of the thoracic and lumbar spine, both with and without gadolinium enhancement. Of course, any potential MRI abnormalities within the thoracic or lumbar spine would not explain his left upper extremity weakness. I would also recommend completion of an EEG. However, as discussed previously, patient has no known history of epilepsy or seizure disorder and there have been no reported signs or symptoms suggestive of seizure disorder. Likewise, he has no known history of migraine which would make complicated migraine unlikely. Nonetheless, I think a trial of verapamil as ordered is not unreasonable at this time. In addition to the above MRIs and EEG, could consider obtaining a lumbar puncture to exclude infection or an atypical Guillain-Brandt type of illness. However, I would like to see if he improves clinically throughout the day before recommending an LP. Admission and Anticipated Discharge Date Admission Date: August 26, 2022 Subjective Follow-up for left-sided weakness Patient reports some improvement in his left facial numbness this morning. Otherwise, denies any significant change in his left-sided weakness or sensory loss to the left arm or leg. Denies any neck or spinal pain. No headache or other complaint at this time. Review of Systems Constitutional: no fever and no chills Respiratory: no cough and no dyspnea Cardiovascular: no chest pain Neurologic: as per Subjective / HPI, + localized weakness and + loss of sensation; no abnormal movements, no dizziness, no headache(s) and no abnormal speech Results & Data ([facility]) Vital Signs (Past 12 Hours) Vital Signs Temp Pulse Resp BP Pulse Ox O2 Del Method 08/29/22 06:00 48 L 15 96 08/29/22 05:00 50 L 15 96 08/29/22 04:00 49 L 14 119/63 96 Room Air 08/29/22 03:00 53 L 15 96 08/29/22 02:00 56 L 14 96 08/29/22 01:00 55 L 15 96 08/29/22 00:00 54 L 14 120/59 L 96 08/28/22 23:00 55 L 15 96 08/28/22 22:00 60 17 96 08/28/22 21:00 66 18 94 08/29/22 04:00 36.9 C 08/28/22 23:54 61 Laboratory Results WBC 4.90, hemoglobin 13.4, hematocrit 38.8, platelet count 248, ESR less than 1, sodium 139, potassium 4.1, BUN 7, creatinine 0.91, glucose 134, triglycerides 73, cholesterol 172, LDL 97, VLDL 15, HDL 60, Lyme screen negative, hypercoagulable panel pending Diagnostic Findings I did independently review the repeat MRI of the brain and cervical spine as described above. I also independently reviewed the repeat CT of the head completed this morning which was also normal. No evidence of hemorrhage, subacute stroke, or other abnormality. Echocardiogram normal left ventricular chamber size with mild concentric LVH, EF 55 to 60%, no segmental left ventricular wall motion abnormalities. 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 Intact interatrial septum. No shunt. Left atrium normal size. ECG normal sinus rhythm. CT angiography of the head and neck negative, no evidence of dissection, thrombosis, stenosis, or other significant vascular lesion. Exam (Neuro) Constitutional: well developed; no acute distress Neurologic: Oriented to:: Person, Place and Time Memory: Short Term Intact and Remote Intact Attention: Span Intact and Concentration Intact Speech Fluency: negative Dysarthria or Dysfluency Fund of Knowledge: Current Events, Past History and Vocabulary Cranial Nerves: Normal II, III, IV, , V, VII, VIII, IX, X, XI and XII Motor Strength: negative Normal Lower Extremities or Normal Upper Extremities Sensation: negative Light Touch Intact or Pain/Temperature Intact Deep Tendon Reflexes: Rt Triceps: 2+, Lt Triceps: 2+, Rt Biceps: 2+, Lt Biceps: 2+, Rt Brachioradialis: 2+, Lt Brachioradialis: 2+, Rt Patellar: 2+, Lt Patellar: 2+, Rt Ankle: 2+ and Lt Ankle: 2+ Special Tests: negative Babinski Present Details: Positive Burks's sign noted with lack of counterpressure on the right heel when assessing the paralyzed left lower limb noted. Patient also exhibited a positive drop test. When elevating the left arm and hand above his face, the limb did not strike his face or head when dropped. PG Care Time/CCT Total # of Minutes Spent Total Time Spent with Patient: Total time spent is greater than 50% in coordination of care (as documented) at patient's floor/unit and/or counseling patient: 55 minutes Coding Level of Care Code 75216 SUB INP/OBS CARE 3/50MIN Diagnoses Left sided numbness R20.0 Left-sided weakness R53.1
[2022-08-29] MEDS: THIAMINE HCL 500 MG in SODIUM CHLORIDE 0.9% 50 ML IV SCH ×3 (08:51→21:45)
[2022-08-29] MEDS: VERAPAMIL HCL 40 MG TAB PO SCH ×3 (08:51→21:03)
[2022-08-29] MEDS: SODIUM CHLORIDE 0.9% 1000ML 1,000 ML IV SCH ×2 (08:51→20:37)
[2022-08-29] MEDS ORDERED: traMADol HCL 50 MG TABLET PO PRN (10:08)
--- NOTE | 2022-08-29 10:10 | Hospitalist Progress Note ---
Date of Service August 29, 2022 Assessment & Plan (1) Left hemiplegia: (2) Left sided numbness: Plan: (1) Left-sided weakness: Plan: Left-sided flaccid paralysis and complete anesthesia Initial brain MRI: No acute CVA Repeat brain MRI today: No acute process CT angiogram: Unrevealing Echocardiogram: Grade 1 diastolic dysfunction, mild to moderate mitral regurgitation Given TNK 8 PM 08/[address] head 24 hours post TNK: No hemorrhage noted Discussed with neurologist Dr. Xander Stark Recommend transfer to [facility], but upon discussion with [facility] neurologist Dr. Suarez, recommend to continue monitoring at [facility] with possible conversion disorder 08/28 Patient tried to participate with PT today Able to sit up in bed, and stand with walker As per physical therapist, they observed quadricep contraction when patient was sitting up, but patient had no active movement on command Discussed with Dr. Stark Will start trial of verapamil for hemiplegic migraine Flexeril also ordered for muscle spasm Patient declining thoracic and lumbar spine MRI today as it was giving him headache and blurry vision We will try obtaining this tomorrow Possible EEG and lumbar tap on Tuesday 08/29 still with no improvement of L hemiplegia T and L Spine MRI ordered (+) pain on the L shoulder will order Ortho consult continue Verapamil continue PT/OT DVT prophylaxis. Lovenox subcu tomorrow if okay with neurology Full code Admission and Anticipated Discharge Date Admission Date: August 26, 2022 Subjective Follow-up for left-sided hemiplegia and anesthesia, etc. Seen with patient's Cherie at the bedside States he feels about the same as yesterday Patient still having left-sided weakness and numbness unchanged from yesterday Denies headache, blurring of vision, dizziness, nausea vomiting No fevers or chills Appetite is good No other symptoms Review of Systems Review of Systems: all noted and negative except for above Physical Exam Physical Exam: General- oriented x 3, not in distress, speaks in sentences with no effort or accessory muscle use Eyes- anicteric Neck- no JVD Lungs- clear breath sounds bilaterally Heart- normal rate, regular rhythm; no murmurs Abdomen- normal bowel sounds, nondistended, soft, nontender Extremities- no pretibial edema, no calf tenderness Neuro- alert, oriented x 3; Left- 0/5 Skin- warm & dry Results & Data Results & Data ([facility]) Vital Signs (Past 12 Hours) Vital Signs Temp Pulse Pulse Resp BP BP Pulse Ox 08/29/22 07:00 36.8 C 62 20 102/62 97 08/29/22 08:00 62 08/29/22 06:00 48 L 15 96 08/29/22 05:00 50 L 15 96 08/29/22 04:00 49 L 14 119/63 96 08/29/22 03:00 53 L 15 96 08/29/22 02:00 56 L 14 96 08/29/22 01:00 55 L 15 96 08/29/22 00:00 54 L 14 120/59 L 96 08/28/22 23:00 55 L 15 96 08/29/22 04:00 36.9 C 08/28/22 23:54 61 O2 Del Method 08/29/22 07:00 Room Air 08/29/22 08:00 08/29/22 06:00 08/29/22 05:00 08/29/22 04:00 Room Air 08/29/22 03:00 08/29/22 02:00 08/29/22 01:00 08/29/22 00:00 08/28/22 23:00 08/29/22 04:00 08/28/22 23:54 all noted and reviewed including below
[2022-08-29] MEDS: oxyCODONE HCL IR 5 MG TAB (IMMEDIATE RELEASE) PO PRN (12:23)
[2022-08-29] MEDS: CYCLOBENZAPRINE HCL 10 MG TAB PO PRN (12:23)
[2022-08-29] MEDS: LIDOCAINE 5% 1 PATCH TD SCH (14:01)
--- NOTE | 2022-08-29 14:17 | Magnetic Resonance Report ---
THORACIC SPINE MRI HISTORY: L sided hemiplegia/anesthesia TECHNIQUE: Multiplanar multisequence MRI of the thoracic spine was performed without the use of contr ast. COMPARISON: None. FINDINGS: No fracture or subluxation within the thoracic spine. Mild scoliosis. Paravertebral soft tissues are unremarkable. No epidural fluid collections. The thoracic spinal cord is normal in course, caliber, a nd signal intensity. Minimal disc space narrowing within the mid to lower thoracic spine. No disc her niations. No significant central canal or neural foraminal narrowing. IMPRESSION: No significant abnormality within the thoracic spine. ACT 112: Negative or not required by law. Electronically signed by: Arik Shore M.D. 08/29/2022 2:15 PM
--- NOTE | 2022-08-29 14:40 | Magnetic Resonance Report ---
LUMBAR SPINE MRI HISTORY: L sided hemiplegia/anesthesia TECHNIQUE: Multiplanar multisequence MRI of the lumbar spine was performed without the use of contras t. COMPARISON: None. FINDINGS: For the purpose of the report the L5-S1 disc space will be located on axial image 28 of 31. No fracture or subluxation within the lumbar spine. Disc spaces are preserved. The visualized sacrum is intact. Paravertebral soft tissues are unremarkable. The conus terminates at the L1 level. No epid ural fluid collections. No disc herniations. L1-L2: No significant central canal or neural foraminal narrowing. L2-L3: No significant central canal or neural foraminal narrowing. L3-L4: No significant central canal or neural foraminal narrowing. L4-L5: No significant central canal or neural foraminal narrowing. L5-S1: No significant central canal or neural foraminal narrowing. IMPRESSION: No significant abnormality within the lumbar spine. ACT 112: Negative or not required by law. Electronically signed by: Arik Shore M.D. 08/29/2022 2:37 PM
[2022-08-29 15:22] LABS: Albumin Globulin Ratio 1.7 (0.9-2); Albumin Level 4.3 gm/dl (3.4-5.0); BUN Creatinine Ratio 9.9 (10-20); Bilirubin,Total 0.6 mg/dl (0.2-1.0); C Reactive Protein 0.54 mg/dl (0-0.5); Calcium 9.3 mg/dl (8.5-10.1); Creatinine Clr Calc Pharmacy 97.1 ml/min; Est GFR (African American) 100.8 ml/min; Est GFR (Non-African American) 86.9 ml/min; Globulin 2.5 gm/dl (2.5-4.0); Total Protein 6.8 gm/dl (6.0-8.3)
--- NOTE | 2022-08-29 16:56 | XRay Report ---
XR shoulder LT min 2V routine CLINICAL HISTORY: Left shoulder pain COMPARISON STUDY: None. FINDINGS: No fracture or dislocation within the left shoulder. A left clavicle is intact. Soft tissue s are unremarkable. IMPRESSION: No fracture or dislocation within the left shoulder. ACT 112: Negative or not required by law. Electronically signed by: Arik Shore M.D. 08/29/2022 4:55 PM
[2022-08-29] MEDS: MELATONIN 3 MG TAB PO PRN (21:04)
[2022-08-30] MEDS: oxyCODONE HCL IR 5 MG TAB (IMMEDIATE RELEASE) PO PRN (04:16)
[2022-08-30] MEDS: SODIUM CHLORIDE 0.9% 1000ML 1,000 ML IV SCH ×2 (06:19→16:23)
--- NOTE | 2022-08-30 06:52 | Orthopedic Consultation ---
Date of Consultation August 30, 2022 Assessment & Plan (1) Left shoulder pain: Left shoulder pain -Patient notes return of motor function to his left upper extremity around 0330 this morning -Notes tingling sensation to his left upper extremity but states that shoulder pain is improving -X-rays of the left shoulder without acute fractures or dislocations, no other acute bony abnormalities -Patient denies history of previous shoulder problems or recent trauma. Pain could be related to possible sprain or rotator cuff tendonitis, however, feel that this is unlikely with lack of trauma in setting of concurrent neurological symptoms -Patient is without pain to his left lower extremity, feel this is also related to neurologic pathology as well. Would not recommend additional imaging of the LLE at this point -No additional recommendations per Orthopedics at this time -If he continues with shoulder pain, he may follow up in the clinic as an outpatient for further workup. Please call [facility] at [phone] to make an appointment if needed Orthopedics will sign off at this time. Please call back with any additional questions or concerns History of Present Illness Reason for Consultation: Left shoulder pain Attending Physician: Wes Grayson MD History of Present Illness Mr. Anand is a 51 year old male with history of tobacco use who had presented to the ED on 08/26/22 with a sudden onset of diffuse left sided pain, numbness and hemiparesis to his left arm and leg. On presentation, stroke alert was initiated and he was administered TNK due to concerns for acute ICH, right MCA distribution. Since then, he has had 2 brain and c-spine MRIs as well as T/L spine MRIs without significant findings. Neurology was concerned for pseudoparalysis and possibly conversion disorder, also trialing verapamil for possible hemiplegic migraines and Flexeril for muscle spasms. Orthopedics was consulted to assess left shoulder pain. Patient states that he is starting to feel better this morning. He regained motor function of his left arm around 0330 this morning and states that his pain is improving. He does still note some tingling sensation in his left upper extremity and states that his shoulder is a bit tender but this is much better than it previously was. He still notes lack of sensation or motor function to his left lower extremity, denies pain associated with this. Patient denies previous shoulder injuries or recent trauma. Allergies Allergy/AdvReac Type Severity Reaction Status Date / Time morphine Allergy Mild Hives Verified 08/26/22 20:40 Home Medications Medication Instructions Recorded Confirmed Type acetaminophen 650 mg 650 mg PO Q8H PRN Pain 08/26/22 08/26/22 History tablet,extended release cyclobenzaprine 10 mg tablet 10 mg PO BID PRN muscle spasms 08/26/22 08/26/22 History Patient History Medical History (Updated 08/30/22 @ 08:04 by Jocelyn Padilla PA-C) Stroke-like symptoms Social History Smoking Status: Current every day smoker Tobacco Type: Cigarettes and Cigars Cigarettes Per Day: 1 cigar per day; Hx Alcohol Use: No Hx Substance Use: No Preferred Language: [place] Communication Ability: Effective 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 Mild tenderness to palpation over the anterolateral shoulder. ROM intact but does note increased pain with flexion and abduction. 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 Sensation intact, capillary refill <2 seconds Left lower extremity: No ecchymosis, erythema or edema. No tenderness to p alpation, sensation not intact to light touch. active ROM not intact. Reflexes remain intact, 2+ throughout. Negative Babinski. D/p pulse intact, capillary refill <2 seconds Results & Data ([facility]) Vital Signs (Past 12 Hours) Vital Signs Temp Pulse Pulse Resp BP Pulse Ox O2 Del Method 08/30/22 03:42 36.6 C 58 L 18 109/62 97 Room Air 08/29/22 23:29 62 18 114/62 96 Room Air 08/29/22 23:02 65 08/29/22 20:14 64 08/29/22 19:17 36.6 C 59 L 19 101/64 95 Room Air Diagnostic Findings Left shoulder x-ray evaluated by radiologist and myself as below. Negative for acute fractures, dislocations or other acute bony abnormalities. XR shoulder LT min 2V routine CLINICAL HISTORY: Left shoulder pain COMPARISON STUDY: None. FINDINGS: No fracture or dislocation within the left shoulder. A left clavicle is intact. Soft tissues are unremarkable. IMPRESSION: No fracture or dislocation within the left shoulder.
[2022-08-30 07:47] LABS: INR 1.1 (0.9-1.1); Prothrombin Time 11.3 Seconds (9.0-12.0)
[2022-08-30] MEDS: LIDOCAINE 5% 1 PATCH TD SCH (08:39)
[2022-08-30] MEDS: VERAPAMIL HCL 40 MG TAB PO SCH ×3 (08:39→21:04)
--- NOTE | 2022-08-30 10:25 | Neurology Progress Note ---
Date of Service August 30, 2022 Assessment & Plan (1) Left-sided weakness: (2) Left sided numbness: Plan Improving left-sided weakness. Continue to suspect functional neurological symptoms, possibly conversion disorder. No evidence of objective abnormalities on extensive neurological testing thus far including MRI of the brain and cervical spine x2, and more recent MRI of the thoracic and lumbar spine. EEG to be completed today, but again, no signs or symptoms to suggest seizure disorder. Complicated or hemiplegic migraine probably unlikely given lack of history of migraine disorder. No signs or symptoms to suggest encephalitis, myelitis, or brachial or lumbosacral radiculitis. Given patient's clinical improvement, I do not think additional testing other than today's EEG is necessary. Would not need a lumbar puncture at this time. Continue current supportive medical care. May continue with verapamil at the current dosage which has been prescribed given the possibility of complicated or hemiplegic migraine. Would not necessarily need to continue verapamil, however, at time of discharge, assuming complete symptom resolution going forward. Admission and Anticipated Discharge Date Admission Date: August 26, 2022 Subjective Follow-up for weakness Patient reports considerable improvement in his left-sided weakness, especially the arm, improvement in sensory loss as well although still reports weakness for the left lower limb. No headache, neck or spinal pain, no fevers, chills, tremors, or other symptoms. He did complete the requested MRI of the thoracic and lumbar spine, the studies were unremarkable. EEG to be completed this morning. Again, however, no signs or symptoms suggestive of seizures. Review of Systems Constitutional: no fever and no chills Eyes: no blind spots and no diplopia Neurologic: as per Subjective / HPI Results & Data ([facility]) Vital Signs (Past 12 Hours) Vital Signs Temp Pulse Pulse Resp BP Pulse Ox O2 Del Method 08/30/22 07:41 61 08/30/22 07:22 36.6 C 56 L 17 114/71 98 Room Air 08/30/22 03:42 36.6 C 58 L 18 109/62 97 Room Air 08/29/22 23:29 62 18 114/62 96 Room Air 08/29/22 23:02 65 Diagnostic Findings Follow-up MRI of the lumbar and thoracic spine completed, no abnormalities. I reviewed the images as well as the radiologist's interpretation of these tests. No evidence of abnormal postcontrast enhancement, no spinal stenosis, no myelopathic spinal cord signal. Exam (Neuro) Constitutional: well developed; no acute distress Neurologic: Oriented to:: Person, Place and Time Attention: Span Intact and Concentration Intact Speech Fluency: negative Dysarthria or Dysfluency Fund of Knowledge: Current Events, Past History and Vocabulary Cranial Nerves: Normal II, III, IV, , V, VII, VIII, IX, X, XI and XII Motor Strength: Normal Upper Extremities; negative Normal Lower Extremities Muscle Bulk/Involuntary Movements: No Involuntary Movements Coordination: negative Finger-Nose Abnormal Details: Patient exhibits intact/normal strength for the left upper extremity at this time, intact sensation as well. Left lower extremity remains weak but with positive Burks's sign. No asymmetry in deep tendon reflexes. No Babinski. PG Care Time/CCT Total # of Minutes Spent Total Time Spent with Patient: Total time spent is greater than 50% in coordination of care (as documented) at patient's floor/unit and/or counseling patient: Coding Level of Care Code 96695 SUB INP/OBS CARE 2/35MIN Diagnoses Left-sided weakness R53.1 Left sided numbness R20.0
--- NOTE | 2022-08-30 12:50 | Electroencephalogram ---
EEG Procedure Note Date of Service August 30, 2022 Start / End Times Start Time: 10:44 AM End Time: 11:[address] Stark History Left-sided weakness, evaluate for seizure activity Home Medication List Medication Instructions Recorded Confirmed Type acetaminophen 650 mg 650 mg PO Q8H PRN Pain 08/26/22 08/26/22 History tablet,extended release cyclobenzaprine 10 mg tablet 10 mg PO BID PRN muscle spasms 08/26/22 08/26/22 History Inpatient Medication List Cyclobenzaprine HCl (Cyclobenzaprine Hcl 10 Mg Tab) 10 mg PO TID PRN PRN Reason: muscle spasms Stop: 09/27/22 20:59 Last Admin: 08/29/22 12:23 Dose: 10 mg Documented By: Admin: 08/28/22 20:11 Dose: 10 mg Documented By: ROSALEE Sodium Chloride (Nss 1000ml) 1,000 mls @ 100 mls/hr IV .Q10H DANIA Stop: 09/28/22 08:29 Last Admin: 08/30/22 06:19 Dose: 100 mls/hr Documented By: Infusion: 08/30/22 06:19 Dose: 0 mls/hr Documented By: Admin: 08/29/22 20:37 Dose: 100 mls/hr Documented By: Infusion: 08/29/22 20:37 Dose: 0 mls/hr Documented By: Infusion: 08/29/22 19:39 Dose: 100 mls/hr Documented By: Admin: 08/29/22 08:51 Dose: 100 mls/hr Documented By: CATHI Lidocaine (Lidocaine 5% 1 Patch) 1 patch TD QAM DANIA Stop: 09/28/22 10:29 Last Admin: 08/30/22 08:39 Dose: 1 patch Documented By: Admin: 08/29/22 14:01 Dose: 1 patch Documented By: GPF Lorazepam (Lorazepam 0.25 Mg Iv Inj) 0.25 mg IV Q6H PRN PRN Reason: anxiety Stop: 09/25/22 22:01 Last Admin: 08/28/22 20:25 Dose: 0.25 mg Documented By: ROSALEE Melatonin (Melatonin 3 Mg Tab) 3 mg PO HS PRN PRN Reason: Sleep Stop: 09/28/22 20:40 Last Admin: 08/29/22 21:04 Dose: 3 mg Documented By: EVELYN Miscellaneous (Remove Lidoderm Patch) 1 each N/A DAILY@2100 [facility] Stop: 09/28/22 20:59 Last Admin: 08/29/22 21:03 Dose: 1 each Documented By: EVELYN Oxycodone HCl (Oxycodone Hcl Ir 5 Mg Tab (Immediate Release)) 5 - 10 mg PO QID PRN PRN Reason: Pain Stop: 09/10/22 20:56 Last Admin: 08/30/22 04:16 Dose: 10 mg Documented By: Admin: 08/29/22 12:23 Dose: 5 mg Documented By: Admin: 08/27/22 21:33 Dose: 10 mg Documented By: ROSALEE Tramadol HCl (Tramadol Hcl 50 Mg Tablet) 50 mg PO Q4H PRN PRN Reason: moderate to severe pain Stop: 09/28/22 10:07 Last Admin: 08/29/22 14:02 Dose: 50 mg Documented By: CATHI Verapamil HCl (Verapamil Hcl 40 Mg Tab) 40 mg PO TID [facility] Stop: 09/27/22 14:29 Last Admin: 08/30/22 08:39 Dose: 40 mg Documented By: Admin: 08/29/22 21:03 Dose: 40 mg Documented By: Admin: 08/29/22 14:56 Dose: 40 mg Documented By: Admin: 08/29/22 08:51 Dose: 40 mg Documented By: Admin: 08/28/22 20:12 Dose: 40 mg Documented By: Admin: 08/28/22 14:37 Dose: 40 mg Documented By: CATHI Discontinued Medications Cyclobenzaprine HCl (Cyclobenzaprine Hcl 10 Mg Tab) 10 mg PO NOW STA Stop: 08/28/22 13:40 Last Admin: 08/28/22 13:56 Dose: 10 mg Documented By: CATHI Fentanyl Citrate (Fentanyl Citrate 100 Mcg/2 Ml Vial) 50 mcg IV NOW STA Stop: 08/26/22 23:19 Last Admin: 08/26/22 23:20 Dose: 50 mcg Documented By: ROSALEE Fentanyl Citrate (Fentanyl Citrate 100 Mcg/2 Ml Vial) Confirm Administered Dose 100 mcg .ROUTE .ST-MED ONE Stop: 08/26/22 23:22 Last Admin: 08/27/22 01:25 Dose: Not Given Documented By: ROSALEE Fentanyl Citrate (Fentanyl Citrate 100 Mcg/2 Ml Vial) 25 mcg IV Q4H PRN PRN Reason: Pain Stop: 09/10/22 05:33 Last Admin: 08/27/22 05:40 Dose: 25 mcg Documented By: ROSALEE Fentanyl Citrate (Fentanyl Citrate 100 Mcg/2 Ml Vial) Confirm Administered Dose 100 mcg .ROUTE .STK-MED ONE Stop: 08/27/22 05:36 Last Admin: 08/27/22 05:36 Dose: Not Given Documented By: ROSALEE Gadobutrol (Gadobutrol 65ml Vial) 8.5 ml IV ONCE ONE Stop: 08/27/22 00:31 Last Admin: 08/27/22 00:31 Dose: 8.5 ml Documented By: AMAURI Gadobutrol (Gadobutrol 65ml Vial) 8.5 ml IV ONCE ONE Stop: 08/27/22 13:25 Last Admin: 08/27/22 13:24 Dose: 8.5 ml Documented By: ADELA Tenecteplase 22 mg/ Syringe 4.4 mls @ 52.8 mls/min IV NOW ONE; Protocol Stop: 08/26/22 20:15 Last Admin: 08/26/22 20:10 Dose: 52.8 mls/min Documented By: TIMOTHY Co-signed By: CRISTY Sodium Chloride (Nss 1000ml) 1,000 mls @ 999 mls/hr IV .Q1H1M ONE Stop: 08/26/22 21:08 Last Infusion: 08/26/22 21:13 Dose: 0 mls/hr Documented By: Admin: 08/26/22 20:12 Dose: 999 mls/hr Documented By: TIMOTHY Magnesium Sulfate/Dextrose (Magnesium Sulfate / D5w) 1 gm in 100 mls @ 50 mls/hr IV ONE ONE Stop: 08/26/22 22:20 Last Infusion: 08/26/22 22:50 Dose: 0 mls/hr Documented By: Admin: 08/26/22 20:37 Dose: 50 mls/hr Documented By: TIMOTHY Acetaminophen (Ofirmev) 1,000 mg in 100 mls @ 400 mls/hr IV NOW STA Stop: 08/26/22 21:14 Last Infusion: 08/26/22 21:24 Dose: 0 mls/hr Documented By: Admin: 08/26/22 21:09 Dose: 400 mls/hr Documented By: TIMOTHY Dextrose/Lactated Ringer's (D5w And Lactated Ringers) 1,000 mls @ 100 mls/hr IV .Q10H ONE Stop: 08/27/22 07:00 Last Infusion: 08/27/22 09:27 Dose: 0 mls/hr Documented By: [id number] Admin: 08/26/22 22:03 Dose: 100 mls/hr Documented By: ROSALEE Acetaminophen (Ofirmev) 1,000 mg in 100 mls @ 400 mls/hr IV Q8H PRN PRN Reason: fever/pain Stop: 08/29/22 21:57 Last Infusion: 08/27/22 10:05 Dose: 0 mls/hr Documented By: [id number] Admin: 08/27/22 09:49 Dose: 400 mls/hr Documented By: [id number] Thiamine HCl 500 mg/ Sodium (Chloride) 55 mls @ 210 mls/hr IV TID DANIA Stop: 08/29/22 23:59 Last Infusion: 08/29/22 22:01 Dose: 0 mls/hr Documented By: Admin: 08/29/22 21:45 Dose: 210 mls/hr Documented By: Infusion: 08/29/22 15:43 Dose: 0 mls/hr Documented By: [email or web address] Admin: 08/29/22 14:56 Dose: 210 mls/hr Documented By: Infusion: 08/29/22 11:18 Dose: 0 mls/hr Documented By: Admin: 08/29/22 08:51 Dose: 21 mls/hr Documented By: Infusion: 08/28/22 20:56 Dose: 0 mls/hr Documented By: Admin: 08/28/22 20:26 Dose: 210 mls/hr Documented By: Infusion: 08/28/22 14:22 Dose: 0 mls/hr Documented By: Admin: 08/28/22 13:56 Dose: 210 mls/hr Documented By: Infusion: 08/28/22 09:50 Dose: 0 mls/hr Documented By: Admin: 08/28/22 09:35 Dose: 210 mls/hr Documented By: Infusion: 08/27/22 21:14 Dose: 0 mls/hr Documented By: Admin: 08/27/22 20:53 Dose: 210 mls/hr Documented By: Infusion: 08/27/22 15:58 Dose: 0 mls/hr Documented By: [id number] Admin: 08/27/22 15:33 Dose: 210 mls/hr Documented By: [id number] Infusion: 08/27/22 10:06 Dose: 0 mls/hr Documented By: [id number] Admin: 08/27/22 09:50 Dose: 210 mls/hr Documented By: [id number] Acetaminophen (Ofirmev) 1,000 mg in 100 mls @ 400 mls/hr IV NOW STA Stop: 08/27/22 15:17 Last Infusion: 08/27/22 15:57 Dose: 0 mls/hr Documented By: [id number] Admin: 08/27/22 15:34 Dose: 400 mls/hr Documented By: [id number] Ioversol (Optiray 320 500ml) 118 ml IV ONCE ONE Stop: 08/26/22 19:14 Last Admin: 08/26/22 19:13 Dose: 118 ml Documented By: NKECHI [place] (Stat Iv) 1 each N/A NOW STA Stop: 08/26/22 20:05 Last Admin: 08/26/22 20:11 Dose: 1 each Documented By: TIMOTHY [place] (Icu Protocol For Hyperglycemia) 1 each N/A ACHS DANIA Stop: 08/29/22 07:29 Last Admin: 08/28/22 09:35 Dose: Not Given Documented By: Admin: 08/27/22 21:15 Dose: 1 each Documented By: Admin: 08/27/22 17:04 Dose: Not Given Documented By: [id number] Admin: 08/27/22 12:03 Dose: Not Given Documented By: [id number] Admin: 08/27/22 08:09 Dose: Not Given Documented By: [id number] Ondansetron HCl (Ondansetron Inj 2 Mg/Ml 2 Ml Vial) 4 mg IV NOW STA Stop: 08/26/22 19:28 Last Admin: 08/26/22 19:31 Dose: 4 mg Documented By: TIMOTHY Ondansetron HCl (Ondansetron Inj 2 Mg/Ml 2 Ml Vial) 4 mg IV NOW STA Stop: 08/26/22 20:09 Last Admin: 08/26/22 20:13 Dose: 4 mg Documented By: TIMOTHY Oxycodone HCl (Oxycodone Hcl Ir 5 Mg Tab (Immediate Release)) 5 mg PO NOW STA Stop: 08/27/22 15:10 Last Admin: 08/27/22 15:56 Dose: 5 mg Documented By: [id number] Sodium Chloride (Sodium Chloride 0.9% 10ml Flush) 20 ml IV NOW STA Stop: 08/26/22 20:05 Last Admin: 08/26/22 20:11 Dose: 20 ml Documented By: TIMOTHY Verapamil HCl (Verapamil Hcl 120 Mg Tabcr) 120 mg PO QAM [facility] Stop: 09/27/22 14:14 Last Admin: 08/28/22 14:21 Dose: Not Given Documented By: CATHI Description This is a 21 electrode EEG with a single channel dedicated to limited EKG. The electrodes were placed in accordance with the International 10-20 system. There is a posterior dominant rhythm of 10 Hz which is symmetrically distributed and attenuates with eye opening. There is a normal anterior to posterior organization. Photic stimulation is unremarkable. Hyperventilation is not performed. There is a symmetric frontal beta rhythm. There is no focal slowing. There are no epileptiform abnormalities. There are some attenuation of the posterior dominant rhythm in the latter part of the study with the emergence of generalized polymorphic theta activity. There are a few vertex waves. Interpretation Normal-appearing awake/sleep EEG. A normal EEG does not completely exclude a diagnosis of epilepsy. Further clinical correlation may be needed. [facility] EEG Procedure Codes Indication for Procedure (1) Left-sided weakness: Neurology Neurology: [id number] EEG include record awake & sleepy
--- NOTE | 2022-08-30 17:29 | Hospitalist Progress Note ---
Date of Service August 30, 2022 Assessment & Plan (1) Left hemiplegia: (2) Left sided numbness: Plan: (1) Left-sided weakness: Plan: Left-sided flaccid paralysis and complete anesthesia Initial brain MRI: No acute CVA Repeat brain MRI today: No acute process CT angiogram: Unrevealing Echocardiogram: Grade 1 diastolic dysfunction, mild to moderate mitral regurgitation Given TNK 8 PM 08/[address] head 24 hours post TNK: No hemorrhage noted Discussed with neurologist Dr. Xander Stark Recommend transfer to [facility], but upon discussion with [facility] neurologist Dr. Suarez, recommend to continue monitoring at [facility] with possible conversion disorder 08/28 Patient tried to participate with PT today Able to sit up in bed, and stand with walker As per physical therapist, they observed quadricep contraction when patient was sitting up, but patient had no active movement on command Discussed with Dr. Stark Will start trial of verapamil for hemiplegic migraine Flexeril also ordered for muscle spasm Patient declining thoracic and lumbar spine MRI today as it was giving him headache and blurry vision We will try obtaining this tomorrow Possible EEG and lumbar tap on Tuesday 08/29 still with no improvement of L hemiplegia T and L Spine MRI ordered (+) pain on the L shoulder will order Ortho consult continue Verapamil continue PT/OT 08/30 strength and sensation LUE almost back to baseline LLE still weak, numb continue Verapamil Hold LP, EEG ordered PT/OT eval DVT prophylaxis. Lovenox subcu if ok with Neuro Full code Admission and Anticipated Discharge Date Admission Date: August 26, 2022 Subjective ff up for left sided hemiplegia/anesthesia, etc seen resting in bed, comfortable eating lunch able to move L upper ext today sensation also restored pain improved still has L LE weakness/anesthesia no other symptoms Review of Systems Review of Systems: all noted and negative except for above Physical Exam Physical Exam: General- oriented x 3, not in distress, speaks in sentences with no effort or accessory muscle use Eyes- anicteric Neck- no JVD Lungs- clear breath sounds bilaterally, no crackles/wheezing Heart- normal rate, regular rhythm; no murmurs Abdomen- normal bowel sounds, nondistended, soft, nontender Extremities- no pretibial edema, no calf tenderness Neuro- alert, oriented x 3; LUE 4/5 MS, 100% sensation LLE o/5, 0% Skin- warm & dry Results & Data Results & Data ([facility]) Vital Signs (Past 12 Hours) Vital Signs Temp Pulse Pulse Resp BP Pulse Ox O2 Del Method 08/30/22 16:00 59 L 08/30/22 15:10 66 08/30/22 11:10 36.8 C 54 L 18 117/67 96 Room Air 08/30/22 08:00 61 08/30/22 07:41 61 08/30/22 07:22 36.6 C 56 L 17 114/71 98 Room Air all noted and reviewed including below
[2022-08-31] MEDS: MELATONIN 3 MG TAB PO PRN (02:19)
[2022-08-31] MEDS: SODIUM CHLORIDE 0.9% 1000ML 1,000 ML IV SCH (04:40)
[2022-08-31 07:29] LABS: BUN Creatinine Ratio 9.7 (10-20); Calcium 9.4 mg/dl (8.5-10.1); Creatinine Clr Calc Pharmacy 95.2 ml/min; Est GFR (African American) 98.4 ml/min; Est GFR (Non-African American) 84.9 ml/min; Potassium 4.4 mmol/L (3.5-5.1)
[2022-08-31] MEDS: LIDOCAINE 5% 1 PATCH TD SCH (08:09)
[2022-08-31] MEDS: VERAPAMIL HCL 40 MG TAB PO SCH ×3 (08:10→20:07)
[2022-08-31] MEDS: oxyCODONE HCL IR 5 MG TAB (IMMEDIATE RELEASE) PO PRN ×2 (10:06→23:56)
--- NOTE | 2022-08-31 14:18 | Hospitalist Progress Note ---
Date of Service August 31, 2022 Assessment & Plan (1) Left hemiplegia: (2) Left sided numbness: Plan: Possible Conversion Disorder, vs Hemiplegic Migraine presented with sudden onset Left-sided flaccid paralysis and complete anesthesia s/p TNK on admission for possible acute CVA- no improvement after Discussed with neurologist Dr. Xander Stark Recommend transfer to [facility], but upon discussion with [facility] neurologist Dr. Suarez, recommend to continue monitoring at [facility] with possible conversion disorder Initial brain MRI: No acute CVA Repeat brain MRI same day: No acute process CT angiogram: Unrevealing Echocardiogram: Grade 1 diastolic dysfunction, mild to moderate mitral regurgitation Thoracic and LUmbar spine MRI: unrevealing EEG: normal 08/28: started verapamil 40mg TID (120mg daily not possible, not crushable- patient reports dysphagia with pills) for possible hemiplegic migraine Flexeril also ordered for muscle spasm (+) pain on the L shoulder- Ortho consulted, no procedures recommended strength and sensation of LUE suddenly returned yesterday Hospital day #5 LLE motor strength and sensation still 0 continue Verapamil PT/OT eval: will need acute Rehab, Orthotics requested for AFO brace DVT prophylaxis. Lovenox subcu Full code Disposition will need acute Rehab Admission and Anticipated Discharge Date Admission Date: August 26, 2022 Subjective ff up for left hemiplegia & anesthesia, etc seen resting in bed, comfortable states he feels about the same as yesterday feels ok overall now able to move LUE, still has some shoulder pain still unable to move LLE, no sensation no other symptoms Review of Systems Review of Systems: all noted and negative except for above Physical Exam Physical Exam: General- oriented x 3, not in distress, speaks in sentences with no effort or accessory muscle use Eyes- anicteric Neck- no JVD Lungs- clear BS bilaterally, no rales/wheezes Heart- normal rate, regular rhythm; no murmurs Abdomen- normal bowel sounds, nondistended, soft, nontender Extremities- no pretibial edema, no calf tenderness Neuro- alert, oriented x 3; LUE- motor strength 5/5, sensation 100% LLE- motor strength 0, sensation 0% R side- essentially normal Skin- warm & dry Results & Data Results & Data ([facility]) Vital Signs (Past 12 Hours) Vital Signs Temp Pulse Pulse Resp BP Pulse Ox O2 Del Method 08/31/22 13:26 36.5 C 59 L 16 96/52 L 96 Room Air 08/31/22 08:00 49 L 08/31/22 07:20 36.6 C 60 20 106/74 96 Room Air 08/31/22 04:00 57 L 18 118/59 L 95 Room Air
[2022-08-31] MEDS: ENOXAPARIN INJ 40 MG/0.4 ML SYR SQ SCH (15:46)
[2022-09-01] MEDS: LIDOCAINE 5% 1 PATCH TD SCH (08:34)
[2022-09-01] MEDS: VERAPAMIL HCL 40 MG TAB PO SCH ×3 (08:34→20:38)
[2022-09-01] MEDS: ENOXAPARIN INJ 40 MG/0.4 ML SYR SQ SCH (08:35)
--- NOTE | 2022-09-01 16:21 | Hospitalist Progress Note ---
Date of Service September 01, 2022 Assessment & Plan (1) Left hemiplegia: (2) Left sided numbness: Plan: Possible Conversion Disorder, vs Hemiplegic Migraine presented with sudden onset Left-sided flaccid paralysis and complete anesthesia s/p TNK on admission for possible acute CVA- no improvement after Discussed with neurologist Dr. Xander Stark Recommend transfer to , but upon discussion with [facility] neurologist Dr. Suarez, recommend to continue monitoring at [facility] with possible conversion disorder Initial brain MRI: No acute CVA Repeat brain MRI same day: No acute process CT angiogram: Unrevealing Echocardiogram: Grade 1 diastolic dysfunction, mild to moderate mitral regurgitation Thoracic and LUmbar spine MRI: unrevealing EEG: normal 08/28: started verapamil 40mg TID (120mg daily not possible, not crushable- patient reports dysphagia with pills) for possible hemiplegic migraine Flexeril also ordered for muscle spasm (+) pain on the L shoulder- Ortho consulted, no procedures recommended strength and sensation of LUE suddenly returned on Hospital day #5 LLE motor strength and sensation still diminished although he has been able to ambulate using a walker continue Verapamil PT/OT eval: will need acute Rehab, Orthotics requested for AFO brace DVT prophylaxis. Lovenox subcu Full code Disposition Patient declining acute rehab but is amenable to OP rehab if it is close to his home Admission and Anticipated Discharge Date Admission Date: August 26, 2022 Subjective Feels stronger. Still with left foot numbness/drop but he has been ambulating using a walker Feels stronger Does not want IP rehab but would consider OP rehab if it is close to his home Physical Exam Physical Exam: Appears well, no acute distress, non toxic Respiratory: breathing comfortably on room air, no wheezing/rhonchi/rales Cardiovascular: regular rate and rhythm, no murmurs/rubs/gallops Gastrointestinal (Abdomen): soft, non tender Musculoskeletal: no edema Neurologic: awake, alert, left leg weakness Results & Data Results & Data ([facility]) Vital Signs (Past 12 Hours) Vital Signs Temp Pulse Pulse Resp BP Pulse Ox O2 Del Method 09/01/22 08:00 58 L 09/01/22 13:42 36.6 C 70 18 112/65 97 Room Air 09/01/22 07:39 36.6 C 72 16 123/64 95 Room Air
[2022-09-01 16:43] LABS: Babesia microti DNA Not Detected (Not Detected)
[2022-09-01 19:41] LABS: BUN Creatinine Ratio 12.1 (10-20); Calcium 9.7 mg/dl (8.5-10.1); Creatinine Clr Calc Pharmacy 91.7 ml/min; Est GFR (Non-African American) 81.1 ml/min; Potassium 4.1 mmol/L (3.5-5.1)
[2022-09-01 19:46] LABS: Troponin I High Sensitivity 3.5 pg/ml (0-20)
[2022-09-02] MEDS: VERAPAMIL HCL 40 MG TAB PO SCH ×3 (08:37→20:33)
[2022-09-02] MEDS: ENOXAPARIN INJ 40 MG/0.4 ML SYR SQ SCH (08:37)
[2022-09-02] MEDS: LIDOCAINE 5% 1 PATCH TD SCH (08:37)
--- NOTE | 2022-09-02 09:50 | Cardiology Consultation ---
Date of Consultation September 02, 2022 Assessment & Plan (1) Stroke-like symptoms: (2) Left hemiplegia: (3) NSVT (nonsustained ventricular tachycardia): Plan The patient had 1 brief episode of a wide-complex tachycardia most likely nonsustained VT. No prior cardiac history and echocardiogram would indicate no structural abnormalities that would suggest ischemic heart disease. His high- sensitivity troponins have been all negative. No other significant arrhythmias on the monitor and he is maintaining sinus rhythm. Electrolytes are all normal. At this point I would recommend no additional cardiac work-up. I would continue to observe him on telemetry while he is in the hospital. If he has additional ventricular ectopy then the treatment should be a beta-sarah. Unfortunately, the patient is already on verapamil related to his neurologic deficits and I do not believe his blood pressure nor heart rate would support a beta-sarah at this time unless the verapamil were discontinued. History of Present Illness Attending Physician: Jermaine Castro MD History of Present Illness This is a 51-year-old male patient who was admitted 7 days ago with left-sided weakness felt initially to be from a stroke. [place] [facility] [place] he was given thrombolytics. Extensive work-up post hospital admission has not found an etiology for his symptoms. The chart would indicate that all his symptoms have resolved but this morning the patient is using a walker and says that his left leg is still weak. Consideration is for complex migraines versus a conversion disorder. The patient has no prior history of heart disease or symptoms leading up to his hospital admission. Yesterday on the telemetry he was noted to have a tachycardia. I reviewed the telemetry and he had a brief episode of about 10 beats of a wide-complex tachycardia which is most likely nonsustained V. tach and less likely to be an SVT with aberrancy. Patient was completely asymptomatic. And he has had no additional significant arrhythmias over the past 24 hours. Echocardiogram essentially shows normal LV function. No wall motion abnormalities that would suggest ischemic heart disease. Allergies Allergy/AdvReac Type Severity Reaction Status Date / Time morphine Allergy Mild Hives Verified 08/26/22 20:40 Home Medications Medication Instructions Recorded Confirmed Type acetaminophen 650 mg 650 mg PO Q8H PRN Pain 08/26/22 08/26/22 History tablet,extended release cyclobenzaprine 10 mg tablet 10 mg PO BID PRN muscle spasms 08/26/22 08/26/22 History Patient History Medical History Stroke-like symptoms Social History Smoking Status: Current every day smoker Tobacco Type: Cigarettes and Cigars Cigarettes Per Day: 1 cigar per day; Hx Alcohol Use: No Hx Substance Use: No Preferred Language: Pashto Communication Ability: Effective [employer] Required: No Beliefs That Will Affect Care: None Current Living Situation: Spouse and Family Current Living Situation Comment: Patient lives with spouse and children Other Information That Helps Us Care for You: No Feels Safe at Home: Yes Safety Concerns: Feels Safe At This Time Assistive Devices: None Assistive Devices Comment: reading glasses Review of Systems Review of Systems: Review of Systems: See HPI for pertinent positives. All other 10 point review of systems are negative. Physical Exam Physical Exam: General: no acute distress and stated age Head: normocephalic, no masses, lesions, tenderness or abnormalities Eyes: conjunctiva are pink and non-injected, sclera clear Neck: supple, no adenopathy, no bruits, normal jugular venous pulse, no hepatojugular reflux Chest: normal shape and normal respiratory effort Lungs: clear to auscultation and percussion Cardiac Exam: - regular rate & rhythm, no murmurs gallops or rubs - normal S1, normal S2 Pulses: 2(+) throughout Abdomen: abdomen soft, non-tender, no abnormal masses and no hepatosplenomegaly Musculoskeletal: no gait disturbance, no joint inflammation, no deforming arthritis Extremities: no edema and no cyanosis Neuro: grossly normal exam Results & Data ([facility]) Vital Signs (Past 12 Hours) Vital Signs Temp Pulse Pulse Resp BP Pulse Ox O2 Del Method 09/02/22 08:35 60 113/69 09/02/22 07:49 36.8 C 69 20 98/65 L 97 Room Air 09/02/22 03:16 36.8 C 57 L 18 121/62 96 Room Air 09/01/22 23:45 64 09/01/22 22:51 36.4 C L 65 18 125/70 97 Room Air Laboratory Results Laboratory Results - last 24 hr 08/29/22 09/01/22 09/01/22 14:29 18:49 18:49 Sodium 136 Potassium 4.1 Chloride 101 Carbon Dioxide 28 Anion Gap 7 BUN 13 Creatinine 1.07 Est Cr Clr Drug Dosing 91.7 Est GFR ( Amer) 94.0 Est GFR (Non-Af Amer) 81.1 BUN/Creatinine Ratio 12.1 Glucose 99 Calcium 9.7 Magnesium 2.0 Troponin I High Sens 3.5 TSH 3.581 Babesia microti DNA PCR Not Detected 09/02/22 09/02/22 00:14 06:07 Sodium Potassium Chloride Carbon Dioxide Anion Gap BUN Creatinine Est Cr Clr Drug Dosing Est GFR ( Amer) Est GFR (Non-Af Amer) BUN/Creatinine Ratio Glucose Calcium Magnesium Troponin I High Sens 3.8 3.2 TSH Babesia microti DNA PCR Medications Administered Current Inpatient Medications Acetaminophen (Acetaminophen 325 Mg Tab) 650 mg PO Q6H PRN PRN Reason: Fever/pain Stop: 09/26/22 20:56 Last Admin: 08/31/22 02:18 Dose: 650 mg Cyclobenzaprine HCl (Cyclobenzaprine Hcl 10 Mg Tab) 10 mg PO TID PRN PRN Reason: muscle spasms Stop: 09/27/22 20:59 Last Admin: 08/29/22 12:23 Dose: 10 mg Enoxaparin Sodium (Enoxaparin Inj 40 Mg/0.4 Ml Syr) 40 mg SQ [facility] Stop: 09/30/22 14:19 Last Admin: 09/02/22 08:37 Dose: 40 mg Promethazine HCl 12.5 mg/ (Sodium Chloride) 50.5 mls @ 202 mls/hr IV Q6H PRN PRN Reason: Nausea And Vomiting Stop: 09/25/22 21:57 Lidocaine (Lidocaine 5% 1 Patch) 1 patch TD [facility] Stop: 09/28/22 10:29 Last Admin: 09/02/22 08:37 Dose: 1 patch Lorazepam (Lorazepam 0.25 Mg Iv Inj) 0.25 mg IV Q6H PRN PRN Reason: anxiety Stop: 09/25/22 22:01 Last Admin: 08/28/22 20:25 Dose: 0.25 mg Melatonin (Melatonin 3 Mg Tab) 3 mg PO HS PRN PRN Reason: Sleep Stop: 09/28/22 20:40 Last Admin: 08/31/22 02:19 Dose: 3 mg Miscellaneous (Remove Lidoderm Patch) 1 each N/A DAILY@2100 [facility] Stop: 09/28/22 20:59 Last Admin: 09/01/22 20:38 Dose: 1 each Oxycodone HCl (Oxycodone Hcl Ir 5 Mg Tab (Immediate Release)) 5 - 10 mg PO QID PRN PRN Reason: Pain Stop: 09/10/22 20:56 Last Admin: 08/31/22 23:56 Dose: 10 mg Tramadol HCl (Tramadol Hcl 50 Mg Tablet) 50 mg PO Q4H PRN PRN Reason: moderate to severe pain Stop: 09/28/22 10:07 Last Admin: 08/29/22 14:02 Dose: 50 mg Verapamil HCl (Verapamil Hcl 40 Mg Tab) 40 mg PO TID [facility] Stop: 09/27/22 14:29 Last Admin: 09/02/22 08:37 Dose: 40 mg
[2022-09-03 08:09] LABS: Activated Protein C Resistance 5.7 ratio (>=2.1); Anti Nuclear Antibody Screen NEGATIVE (NEGATIVE); Anti-Thrombin III Activity 99 % normal (80-135); B2 Glycoprotein IgA <2.0 U/mL (<20.0); B2 Glycoprotein IgG <2.0 U/mL (<20.0); B2 Glycoprotein IgM <2.0 U/mL (<20.0); PTT LA Screen 37 sec (<=40); Protein S Functional(Activity) 83 % normal (70-150)
[2022-09-03] MEDS: VERAPAMIL HCL 40 MG TAB PO SCH ×3 (08:54→20:12)
[2022-09-03] MEDS: LIDOCAINE 5% 1 PATCH TD SCH (08:54)
[2022-09-03] MEDS: ENOXAPARIN INJ 40 MG/0.4 ML SYR SQ SCH (08:54)
[2022-09-03] MEDS: POLYETHYLENE (MIRALAX) 17 GM PACK PO SCH (13:51)
--- NOTE | 2022-09-03 19:29 | Hospitalist Progress Note ---
Date of Service September 03, 2022 Assessment & Plan (1) Left hemiplegia: (2) Left sided numbness: Plan: Possible Conversion Disorder, vs Hemiplegic Migraine presented with sudden onset Left-sided flaccid paralysis and complete anesthesia s/p TNK on admission for possible acute CVA- no improvement after Discussed with neurologist Dr. Xander Stark Recommend transfer to [facility], but upon discussion with [facility] neurologist Dr. Suarez, recommend to continue monitoring at [facility] with possible conversion disorder Initial brain MRI: No acute CVA Repeat brain MRI same day: No acute process CT angiogram: Unrevealing Echocardiogram: Grade 1 diastolic dysfunction, mild to moderate mitral regurgitation Thoracic and LUmbar spine MRI: unrevealing EEG: normal 08/28: started verapamil 40mg TID (120mg daily not possible, not crushable- patient reports dysphagia with pills) for possible hemiplegic migraine Flexeril also ordered for muscle spasm (+) pain on the L shoulder- Ortho consulted, no procedures recommended strength and sensation of LUE suddenly returned on Hospital day #5 LLE motor strength and sensation still diminished although he has been able to ambulate using a walker and foot brace continue Verapamil PT/OT eval: will need acute Rehab, Orthotics requested for AFO brace [facility] Disposition Discharge to [facility] tomorrow Admission and Anticipated Discharge Date Admission Date: August 26, 2022 Subjective Feels well. Waiting for placement Left leg still with weakness and paresthesia Physical Exam Physical Exam: no acute distress, non toxic, pleasant Respiratory: breathing comfortably on room air, no wheezing/rhonchi/rales Cardiovascular: regular rate and rhythm, no murmurs/rubs/gallops Gastrointestinal (Abdomen): soft Neurologic: left leg 0/5 strength Results & Data Results & Data ([facility]) Vital Signs (Past 12 Hours) Vital Signs Temp Pulse Resp BP Pulse Ox O2 Del Method 09/03/22 19:19 36.5 C 64 18 112/76 96 Room Air 09/03/22 15:00 37.1 C 62 16 127/70 97 Room Air 09/03/22 11:00 37.1 C 75 18 132/65 96 Room Air 09/03/22 11:32 Room Air 09/03/22 07:52 36.6 C 54 L 18 104/60 96 Room Air
--- NOTE | 2022-09-03 19:31 | Hospitalist Progress Note ---
Date of Service September 02, 2022 Assessment & Plan (1) Left hemiplegia: (2) Left sided numbness: Plan: Possible Conversion Disorder, vs Hemiplegic Migraine presented with sudden onset Left-sided flaccid paralysis and complete anesthesia s/p TNK on admission for possible acute CVA- no improvement after Discussed with neurologist Dr. Xander Stark Recommend transfer to [facility], but upon discussion with [facility] neurologist Dr. Suarez, recommend to continue monitoring at [facility] with possible conversion disorder Initial brain MRI: No acute CVA Repeat brain MRI same day: No acute process CT angiogram: Unrevealing Echocardiogram: Grade 1 diastolic dysfunction, mild to moderate mitral regurgitation Thoracic and LUmbar spine MRI: unrevealing EEG: normal 08/28: started verapamil 40mg TID (120mg daily not possible, not crushable- patient reports dysphagia with pills) for possible hemiplegic migraine Flexeril also ordered for muscle spasm (+) pain on the L shoulder- Ortho consulted, no procedures recommended strength and sensation of LUE suddenly returned on Hospital day #5 LLE motor strength and sensation still diminished although he has been able to ambulate using a walker and foot brace continue Verapamil PT/OT eval: will need acute Rehab, Orthotics requested for AFO brace DVT prophylaxis. Lovenox subcu Full code Disposition Patient now agreeable to Rehab. CM notified Admission and Anticipated Discharge Date Admission Date: August 26, 2022 Subjective Date of encounter September 02, 2022 Patient initially resistant to going to rehab and wanted to return home. Later agreeable to rehab Still with left leg weakness and numbness but able to ambulate in room using walker Physical Exam Physical Exam: awake, alert, sitting in bed Respiratory: breathing comfortably, no wheezing/rhonchi Cardiovascular: regular rate and rhythm, no murmurs/rubs Gastrointestinal (Abdomen): soft, non tender Musculoskeletal: no edema Neurologic: left leg weakness (0/5 strength) and paresthesia Results & Data Results & Data ([facility]) Vital Signs (Past 12 Hours) Vital Signs Temp Pulse Resp BP Pulse Ox O2 Del Method 09/03/22 19:19 36.5 C 64 18 112/76 96 Room Air 09/03/22 15:00 37.1 C 62 16 127/70 97 Room Air 03/03/23 11:00 37.1 C 75 18 132/65 96 Room Air 09/03/22 11:32 Room Air 09/03/22 07:52 36.6 C 54 L 18 104/60 96 Room Air
[2022-09-03 23:37] LABS: Factor 5 Mutation NEGATIVE; MTHFR POSITIVE
[2022-09-04] MEDS: ENOXAPARIN INJ 40 MG/0.4 ML SYR SQ SCH (09:46)
[2022-09-04] MEDS: LIDOCAINE 5% 1 PATCH TD SCH (09:47)
[2022-09-04] MEDS: POLYETHYLENE (MIRALAX) 17 GM PACK PO SCH (09:47)
[2022-09-04] MEDS: VERAPAMIL HCL 40 MG TAB PO SCH (09:48)
[2022-09-04] MEDS ORDERED: DOCUSATE SODIUM/SENNA 50/8.6MG TAB PO SCH (10:00)
--- NOTE | 2022-09-04 11:45 | Discharge Summary ---
Date of Service September 04, 2022 Admission HPI Per Admitting Provider History obtained from patient, family, and records. Medical history significant for past tobacco abuse. Around 4:30 PM today, patient noted achy left upper arm and left leg pain with left-sided headache and dizziness symptoms. No neck pain, no chest pain, no SOB. No prior episodes. Minutes later, patient noted weakness and numbness of the left arm and left leg. No slurred speech noted by . Stroke alert called upon arrival at the ER. IV tenecteplase administered as per [facility] neurologist recommendation. Left-sided pain somewhat better but weakness the same as per patient. Patient currently complaining of left-sided rib pain without shortness of breath. No recent trauma. Medical History as above Surgical History : None Family History : Prostate cancer Personal/Social history : Past tobacco abuse, no EtOH intake, construction company Admission Exam Per Admitting Provider GENERAL: Comfortable, slightly anxious, looks older than stated age, no respiratory distress SKIN: Normal color, warm HEENT: [place]pp[place] palpebral conjunctivae, no ptosis, left nasolabial fold flattening, dry buccal mucosa NECK : Supple, no tenderness CHEST : CTA, minimal chest wall tenderness HEART : Bradycardic, no obvious murmurs ABDOMEN: Some distention, nontender EXTREMITIES : No LE swelling/tenderness, no other conspicuous deformities noted NEUROLOGIC : Coherent, left nasolabial fold flattening, MMTs RUE/RLE 5/5, LUE/LLE 0/5 Principal Diagnosis Possible conversion disorder versus hemiplegic migraine Discharge Exam Constitutional WD/WN, vitals as above Respiratory normal respiratory effort, lungs clear to auscultation Cardiovascular Rate/Rhythm: regular rate and regular rhythm Vessels: normal peripheral pulses Extremities: no edema Gastrointestinal (Abdomen) Percussion/Palpation: abdomen soft; abdomen nontender Skin no rashes, warm and dry Neurologic LUE strength 4/5, LLE strength 0/5 --otherwise no focal deficit noted Psychiatric A+Ox3, euthymic affect Discharge Data Allergies Allergy/AdvReac Type Severity Reaction Status Date / Time morphine Allergy Mild Hives Verified 08/26/22 20:40 Consultations 08/26/22 21:58 Consult Quality Engineer Medical Device Routine Consult Neurology Routine 08/29/22 10:08 Consult Orthopedic Surgery Routine 09/01/22 17:45 Consult Cardiology Routine Ordered Studies Laboratory Results WBC 4.90 K/ul (4.8-10.8) 08/27/22 05:19 RBC 4.33 M/uL (4.70-6.10) L 08/27/22 05:19 Hgb 13.4 g/dl (14.0-18.0) L 08/27/22 05:19 Hct 38.8 % (42.0-52.0) L 08/27/22 05:19 MCV 89.6 fL (80.0-100.0) 08/27/22 05:19 MCH 30.9 pg (25.0-34.0) 08/27/22 05:19 MCHC 34.5 g/dL (32.0-36.0) 08/27/22 05:19 RDW Std Deviation 43.3 fL (36.4-46.3) 08/27/22 05:19 RDW Coeff of [place] 13.1 % (11.5-14.5) 08/27/22 05:19 Plt Count 248 K/uL (130-400) 08/27/22 05:19 MPV 9.9 fL (9.4-12.4) 08/27/22 05:19 Immature Gran % (Auto) 0.4 % 08/27/22 05:19 Neut % (Auto) 47.1 % 08/27/22 05:19 Lymph % (Auto) 35.7 % 08/27/22 05:19 [place] % (Auto) 9.8 % 08/27/22 05:19 Eos % (Auto) 4.3 % 08/27/22 05:19 Baso % (Auto) 2.7 % 08/27/22 05:19 Neut # (Auto) 2.31 K/uL (1.40-6.50) 08/27/22 05:19 Lymph # (Auto) 1.75 K/uL (1.2-3.4) 08/27/22 05:19 [place] # (Auto) 0.48 K/uL (0.11-0.59) 08/27/22 05:19 Eos # (Auto) 0.21 K/uL (0-0.50) 08/27/22 05:19 Baso # (Auto) 0.13 K/uL (0-0.2) 08/27/22 05:19 Immature Gran # (Auto) 0.02 K/uL (0.01-0.20) 08/27/22 05:19 ESR < 1 mm/hr (0-15) 08/27/22 05:19 PT 11.3 Seconds (9.0-12.0) 08/30/22 06:39 INR 1.1 (0.9-1.1) 08/30/22 06:39 APTT 27.0 Seconds (21.0-31.0) 08/26/22 19:22 PTT Ratio 1.0 08/26/22 19:22 Fibrinogen 236 mg/dl (184-400) 08/27/22 05:19 LA PTT Screen 37 sec (<=40) 08/27/22 05:19 APC Resistance 5.7 ratio (>=2.1) 08/27/22 05:19 Protein S Activity 83 % normal (70-150) 08/27/22 05:19 Antithrombin III Activ 99 % normal (80-135) 08/27/22 05:19 Factor V Leiden Mutat NEGATIVE 08/27/22 05:19 Factor V Leiden Interp See Below 08/27/22 05:19 Factor VIII Activity % (55 - 145) 08/27/22 05:19 Sodium 136 mmol/L (136-145) 09/01/22 18:49 Potassium 4.1 mmol/L (3.5-5.1) 09/01/22 18:49 Chloride 101 mmol/L (98-107) 09/01/22 18:49 Carbon Dioxide 28 mmol/L (21-32) 09/01/22 18:49 Anion Gap 7 (3-11) 09/01/22 18:49 BUN 13 mg/dl (6-23) 09/01/22 18:49 Creatinine 1.07 mg/dl (0.6-1.4) 09/01/22 18:49 Est Cr Clr Drug Dosing 91.7 ml/min 09/01/22 18:49 Est GFR ( Amer) 94.0 ml/min 09/01/22 18:49 Est GFR (Non-Af Amer) 81.1 ml/min 09/01/22 18:49 BUN/Creatinine Ratio 12.1 (10-20) 09/01/22 18:49 Glucose 99 mg/dl (70-99(Fasting)) 09/01/22 18:49 POC Glucose 134 mg/dl (70-99) H 08/27/22 20:49 Calcium 9.7 mg/dl (8.5-10.1) 09/01/22 18:49 Magnesium 2.0 mg/dl (1.7-2.4) 09/01/22 18:49 Total Bilirubin 0.6 mg/dl (0.2-1.0) 08/29/22 14:29 AST 14 U/L (13-39) 08/29/22 14:29 ALT 19 U/L (7-52) 08/29/22 14:29 Alkaline Phosphatase 71 U/L (34-104) 08/29/22 14:29 Total Creatine Kinase 96 U/L (30-223) 08/26/22 19:22 Troponin I High Sens 3.2 pg/ml (0-20) 09/02/22 06:07 C-Reactive Protein 0.54 mg/dl (0-0.5) H 08/29/22 14:29 Total Protein 6.8 gm/dl (6.0-8.3) 08/29/22 14:29 Albumin 4.3 gm/dl (3.4-5.0) 08/29/22 14:29 Globulin 2.5 gm/dl (2.5-4.0) 08/29/22 14:29 Albumin/Globulin Ratio 1.7 (0.9-2) 08/29/22 14:29 Triglycerides 73 mg/dl (0-150) 08/27/22 05:19 Cholesterol 172 mg/dl (0-200) 08/27/22 05:19 LDL Cholesterol, Calc 97 mg/dl 08/27/22 05:19 VLDL Cholesterol, Calc 15 mg/dl (0-30) 08/27/22 05:19 HDL Cholesterol 60 mg/dl 08/27/22 05:19 Cholesterol/HDL Ratio 2.9 (0-5) 08/27/22 05:19 Vitamin B12 285 pg/ml (180-914) 08/29/22 14:29 Homocysteine 7.9 umol/L (<11.4) 08/27/22 05:19 Procalcitonin < 0.05 ng/ml (0-0.5) 08/29/22 14:29 TSH 3.581 uIu/ml (0.300-4.500) 09/01/22 18:49 Urine Color Yellow 08/26/22 19:35 Urine Appearance Clear (Clear) 08/26/22 19:35 Urine pH 7.5 (4.5-7.5) 08/26/22 19:35 Ur Specific [place] 1.008 (1.000-1.030) 08/26/22 19:35 Urine Protein Negative (Negative) 08/26/22 19:35 Urine Glucose (UA) Negative (Negative) 08/26/22 19:35 Urine Ketones Negative (Negative) 08/26/22 19:35 Urine Blood Negative (Negative) 08/26/22 19:35 Urine Nitrite Negative (Negative) 08/26/22 19:35 Urine Bilirubin Negative (Negative) 08/26/22 19:35 Urine Urobilinogen Negative (Negative) 08/26/22 19:35 Ur Leukocyte Esterase Negative (Negative) 08/26/22 19:35 Nasal Screen MRSA (PCR) Negative (Negative) 08/27/22 01:44 CASIE Screen NEGATIVE (NEGATIVE) 08/27/22 05:19 Beta-2-GPI IgG Ab <2.0 U/mL (<20.0) 08/27/22 05:19 Beta-2-GPI IgA Ab <2.0 U/mL (<20.0) 08/27/22 05:19 Beta-2-GPI IgM Ab <2.0 U/mL (<20.0) 08/27/22 05:19 Anaplasma Smear See Comment 08/29/22 14:29 Babesia Smear See Comment 08/29/22 14:29 Babesia microti DNA PCR Not Detected (Not Detected) 08/29/22 14:29 Lyme Disease IgG Ab Negative (Negative) 08/26/22 19:23 Lyme Disease IgM Ab Negative (Negative) 08/26/22 19:23 SARS-CoV-2, RNA, NAAT NEGATIVE (NEGATIVE) 08/26/22 19:28 MTHFR Mutation Detect POSITIVE 08/27/22 05:19 MTHFR Interpretation See Below 08/27/22 05:19 Prothrombin Gene Mutate NEGATIVE 08/27/22 05:19 Prothromb Gene Comment See Below 08/27/22 05:19 Blood Type A Positive 08/26/22 19:22 Antibody Screen NEGATIVE 08/26/22 19:22 Impressions Head CTA 08/26/22 19:03 CTA ANGIOGRAPHY OF THE HEAD CLINICAL HISTORY: neuro deficit, acute stroke suspected COMPARISON STUDY: Head CT January 22, 2007. TECHNIQUE: Helical axial images of the head were obtained following uneventful intravenous administration of 118 cc of Optiray. Sagittal and coronal reconstructions were viewed as well as maximal intensity projections on an independent 3-D workstation. Automated exposure control was utilized for the study. A dose lowering technique was utilized adhering to the principles of ALARA. FINDINGS: Brain volume is normal. Ventricular system is normal. Basal cisterns are patent. There are no extra-axial collections. No intracranial hemorrhage was identified on the head CT which will be reported separately. The bilateral M1, M2, A1 and A2 segments are patent. There is no central vessel occlusion. There is no intracranial aneurysm. The posterior circulation is also intact. Major dural sinuses are patent. IMPRESSION: No central vessel occlusion. No intracranial aneurysm. ACT 112: Negative or not required by law. Electronically signed by: Juan Joseph M.D. 08/26/2022 7:37 PM Neck CTA 08/26/22 19:03 CT ANGIOGRAPHY OF THE NECK WITH CONTRAST CLINICAL HISTORY: neuro deficit, acute stroke suspected COMPARISON STUDY: No previous studies for comparison. Technique: CT angiography of the carotid and vertebral arteries was obtained using Optiray and 3D reconstruction on an independent workstation. NASCET criteria was utilized. Automated exposure control was utilized for the study. A dose lowering technique was utilized adhering to the principles of ALARA. CT DOSE: 1711.57 mGy.cm Findings: Visualized portions of the lung apices are unremarkable. There is no cervical lymphadenopathy. There is no acute cervical spine fracture. The bilateral common carotid, cervical internal carotid and vertebral arteries are patent. There is no dissection, stenosis or aneurysm within the major vasculature of the neck. CTA of the head will be reported separately. IMPRESSION: Unremarkable CTA of the neck. ACT 112: Negative or not required by law. Electronically signed by: Juan Joseph M.D. 08/26/2022 7:33 PM Chest X-Ray 08/26/22 21:08 SINGLE VIEW CHEST CLINICAL HISTORY: Atypical chest pain. FINDINGS: 2 AP, portable, upright chest radiographs are compared to study dated 01/24/2007. The cardiomediastinal silhouette is unremarkable. Mild emphysematous change is suspected. Nonspecific interstitial thickening is likely chronic. No airspace consolidation or large pleural effusion is identified. There are scattered calcified granulomas. No pneumothorax is seen. The bony thorax is grossly intact. IMPRESSION: Mild emphysematous change with no acute cardiopulmonary abnormality identified. ACT 112: Negative or not required by law. Electronically signed by: Deniz Ventura M.D. 08/27/2022 7:38 AM Brain MRI 08/27/22 09:58 MRI OF THE BRAIN COMBO CLINICAL HISTORY: Headache. Left-sided weakness. COMPARISON STUDY: MRI of the brain dated 08/26/2022. TECHNIQUE: MRI of the brain was performed utilizing various T1 and T2-weighted sequences in the axial, sagittal, and coronal planes. Contrast-enhanced sequences were acquired following the administration of 8.5 cc of Gadavist. The examination is performed using the multiple sclerosis protocol. FINDINGS: Brain parenchyma: The brain parenchyma is normal in appearance. No white matter abnormality is seen. There is no hemorrhage or mass effect. There is no restricted diffusion typical for acute ischemia. No enhancing mass lesion is identified on the postcontrast images. Hamm-white matter differentiation is preserved. No extra-axial fluid collection is seen. 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 The cerebellar tonsils are normal in configuration. Ventricles, sulci, and cisterns: Normal in configuration. Pituitary and sella: Unremarkable. Intracranial vasculature: Normal flow voids are maintained at the skull base. Orbits: The bony orbits are grossly intact. Orbital contents are normal in appearance. Sinuses and mastoids: There is trace mucosal thickening and a 7 mm retention cyst noted in the left maxillary antrum. The remaining paranasal sinuses and mastoid air cells are clear. Calvarium: Unremarkable. Cervical cord: Partially visualized cervical spinal cord is normal in morphology and signal intensity. IMPRESSION: No acute intracranial abnormality. There has been no significant change from yesterday. ACT 112: Negative or not required by law. Electronically signed by: Deniz Ventura M.D. 08/27/2022 1:54 PM Cervical Spine MRI 08/27/22 09:58 CLINICAL HISTORY: flaccid left sided weakness TECHNIQUE: MRI of the cervical spine is performed utilizing various T1 and T2 sequences in the axial and sagittal planes. IV contrast was administered for this examination. Comparison: Comparison is made to MRI cervical spine 08/26/2022 FINDINGS: The alignment is anatomical. Disks are normal in height and signal. C2-C3: Unremarkable. C3-C4: Unremarkable. C4-C5: Unremarkable. C5-C6: Unremarkable. C6-C7: Unremarkable. C7-T1: Unremarkable. The spinal ligaments are intact, without evidence of disruption or abnormal signal intensity. The spinal cord is normal in signal intensity and there is no evidence of cord contusion. There is no evidence of an extradural, intradural, extramedullary or intramedullary lesion. Visualized soft tissues are normal. Visualized brain parenchyma is normal. IMPRESSION: No evidence of cord compression or significant neuroforaminal narrowing. ACT 112: Negative or not required by law. Electronically signed by: Gaudencio Rosas M.D. 08/27/2022 2:[address] 08/27/22 21:[address] DOSE: 821.00 mGycm HISTORY: Left-sided weakness. Possible stroke. ff up post TNK administration TECHNIQUE: Multiaxial CT images of the head were performed without the use of intravenous contrast. Automated exposure control was utilized for this study. A dose lowering technique was utilized adhering to the principles of ALARA. Comparison: Head CT 08/26/2022. Findings: The paranasal sinuses and mastoid air cells are clear. The calvarium and skull base are intact. The ventricles and sulci are within normal limits. There is no mass, hematoma, midline shift, or acute infarct. Impression: No acute intracranial abnormality. ACT 112: Negative or not required by law. Electronically signed by: Arik Shore M.D. 08/28/2022 9:24 AM Lumbar Spine MRI 08/29/22 08:29 LUMBAR SPINE MRI HISTORY: L sided hemiplegia/anesthesia TECHNIQUE: Multiplanar multisequence MRI of the lumbar spine was performed without the use of contrast. COMPARISON: None. FINDINGS: For the purpose of the report the L5-S1 disc space will be located on axial image 28 of 31. No fracture or subluxation within the lumbar spine. Disc spaces are preserved. The visualized sacrum is intact. Paravertebral soft tissues are unremarkable. The conus terminates at the L1 level. No epidural fluid collections. No disc herniations. L1-L2: No significant central canal or neural foraminal narrowing. L2-L3: No significant central canal or neural foraminal narrowing. L3-L4: No significant central canal or neural foraminal narrowing. L4-L5: No significant central canal or neural foraminal narrowing. L5-S1: No significant central canal or neural foraminal narrowing. IMPRESSION: No significant abnormality within the lumbar spine. ACT 112: Negative or not required by law. Electronically signed by: Arik Shore M.D. 08/29/2022 2:37 PM Thoracic Spine MRI 08/29/22 08:29 THORACIC SPINE MRI HISTORY: L sided hemiplegia/anesthesia TECHNIQUE: Multiplanar multisequence MRI of the thoracic spine was performed without the use of contrast. COMPARISON: None. FINDINGS: No fracture or subluxation within the thoracic spine. Mild scoliosis. Paravertebral soft tissues are unremarkable. No epidural fluid collections. The thoracic spinal cord is normal in course, caliber, and signal intensity. Minimal disc space narrowing within the mid to lower thoracic spine. No disc herniations. No significant central canal or neural foraminal narrowing. IMPRESSION: No significant abnormality within the thoracic spine. ACT 112: Negative or not required by law. Electronically signed by: Arik Shore M.D. 08/29/2022 2:15 PM Shoulder X-Ray 08/29/22 13:59 XR shoulder LT min 2V routine CLINICAL HISTORY: Left shoulder pain COMPARISON STUDY: None. FINDINGS: No fracture or dislocation within the left shoulder. A left clavicle is intact. Soft tissues are unremarkable. IMPRESSION: No fracture or dislocation within the left shoulder. ACT 112: Negative or not required by law. Electronically signed by: Arik Shore M.D. 08/29/2022 4:55 PM Hospital Course (1) Left hemiplegia: (2) Left sided numbness: Possible Conversion Disorder, vs Hemiplegic Migraine presented with sudden onset Left-sided flaccid paralysis and complete anesthesia s/p TNK on admission for possible acute CVA- no improvement after Discussed with neurologist Dr. Xander Stark Recommend transfer to [facility], but upon discussion with [facility] neurologist Dr. Suarez, recommend to continue monitoring at [facility] with possible conversion disorder Initial brain MRI: No acute CVA Repeat brain MRI same day: No acute process CT angiogram: Unrevealing Echocardiogram: Grade 1 diastolic dysfunction, mild to moderate mitral regurgitation Cervical, Thoracic and Lumbar spine MRI: unrevealing EEG: normal 08/28: started verapamil 40mg TID (120mg daily not possible, not crushable- patient reports dysphagia with pills) for possible hemiplegic migraine Flexeril also ordered for muscle spasm (+) pain on the L shoulder- Ortho consulted, no procedures recommended. Pain controlled with Lidoderm patch. Strength and sensation of LUE suddenly returned on Hospital day #5 LLE motor strength and sensation still diminished although he has been able to ambulate using a walker and AFO brace. NSVT Brief episode of asymptomatic NSVT Cardiology consulted, no further work-up indicated No further recurrences Total Time Total Time Spent Total Time Spent (In Minutes): 40 Discharge Plan Discharge Items Patient Disposition: Transfer Inpatient Rehab Fac Reason For Visit: CVA SP TPA Discharge Diagnosis: Possible Conversion Disorder vs Hemiplegic Migraine Activity: As commented below Activity Comment: As per PT recommendations, continue to use walker and AFO brace Non-emergency contact: Primary Care Provider Call non-emergency contact if: you have any medication questions and your pain is not controlled Follow-up/Referrals: Wu Mobley MD [Primary Care Provider] - Diet: Heart Healthy Addtl Attending Provider Instructions: Patient presented on 08/26 with sudden onside left-sided flaccid paralysis. Received TNK without improvement. Underwent brain MRI x 2 which were both negative for acute CVA, cervical, thoracic, lumbar spine MRIs unrevealing as well. Symptoms felt to be due to possible conversion disorder versus hemiplegic migraine. Started on verapamil 40 mg TID. Left upper extremity weakness improved greatly however left lower extremity weakness persist. Orthotics consulted for AFO brace. Patient complained of left shoulder pain. X-ray unremarkable. Orthopedics consulted, no additional recommendations. Using Lidoderm patch with improvement. Patient also had a brief episode of asymptomatic nonsustained V. tach. Cardiology consulted, no further work-up recommended. Pending Studies at Discharge: No Stand-Alone Forms: My [facility] Skilled Items Patient informed of condition?: Yes DNR: No Discharge Level of Care: Acute rehab Communicable Disease: No Discharge Prognosis: Stable Lines: None Urinary Catheter: No Medications and DC Order Prescriptions: New verapamil 40 mg Tablet 40 mg PO TID Qty: 1 0RF lidocaine 5 % Adhesive Patch,Medicated 1 patch transdermal QAM Qty: 1 0RF polyethylene glycol 3350 [Miralax] 17 gram Powder In Packet 17 g PO DAILY Qty: 1 0RF sennosides-docusate sodium [Senokot-S] 8.6-50 mg Tablet 1 tab PO QAM Qty: 1 0RF Continued cyclobenzaprine 10 mg Tablet 10 mg PO BID PRN (Reason: muscle spasms) acetaminophen [Tylenol Extended Release] 650 mg Tablet Extended Release 650 mg PO Q8H PRN (Reason: Pain) Discharge Orders: Discharge Order (Routine); Ordered 09/04/22 Ordered By: Sydney Castro Admission Data Admit Date/Time: 08/26/22 21:08 Attending Provider: Jermaine Castro Admit Provider: Ketan Gottlieb Primary Care Provider: Wu Mobley Other Providers: Ketan Gottlieb ; Xander Johnson ; Saw Coleman ; Darvin Carranza ; Wse Grayson ; [facility] ; Vamsi Torres Supervising Physician Co-Signing Physician Notes Patient seen and examined independently on day of discharge. Case discussed with JUAN R. Agree with above
[2022-09-04 17:57] LABS: Q Fever IgG, Phase I POSITIVE; Q Fever Phase I IgM Antibody NEGATIVE; Q Fever Phase II IgG Antibody POSITIVE; Q Fever Phase II IgM Antibody NEGATIVE; R. typhi IgG Ab NOT DETECTED; R. typhi IgM Ab NOT DETECTED; RMSF IgG Ab NOT DETECTED; RMSF IgM Ab NOT DETECTED
[2022-09-04 18:07] LABS: Ehrlichia chaff DNA Bld Negative (Negative)
[2022-09-05 00:58] LABS: HMGCR Ab <2 CU (<20)
[2022-09-06 09:04] LABS: Q Fever IgG Phase II Ttr Rflx 1:16 titer; Q Fever IgG,Phase I Titer(Rflx 1:32 titer
== END 2022-09-04 14:55 | DRG 880 ==
LOC: ED 19:04 → 1E 21:08 → SUATTDRO 21:08 → 1E 21:22 → 2E 08-29 18:32